=== PATIENT | male | born 1940 | race Caucasian/White ===

== ENCOUNTER 2017-03-12 13:27 | Inpatient (IN) | payer MEDICARE, OTHER, SELFPAY ==
[2017-03-12] VITALS (32 sets, daily range): BP systolic 104–146; BP diastolic 58–116; PULSE 101–150; RESP 14–25; TEMP 36.8–37; O2SAT 94–100; BMI 23.6; BMI 22.9
--- NOTE | 2017-03-12 13:31 | RAD_ITS ---
STUDY: X-RAY CHEST REASON FOR EXAM: Male, 76 years old. Cardiac dysrhythmia. TECHNIQUE: Single AP portable view of the chest. COMPARISON: None. FINDINGS: EKG electrodes are seen. Elevation of the left hemidiaphragm with atelectasis and/or infiltrate in the left lower lobe. Blunting of the left cause phrenic angle. There is moderate cardiac enlargement. Normal mediastinum and wes. Normal visualized pulmonary arteries. There is atherosclerotic calcification of the aortic arch with tortuosity. There are diffuse degenerative changes of the visualized thoracic spine. Dextroscoliosis. There is degenerative osteoarthritis of the bilateral shoulders. Large hiatal hernia. Covered stent is seen in the abdominal aorta. RAD/Chest 1 View IMPRESSION: Pleural parenchymal changes at the left lung base. Large hiatal hernia. Electronically Signed: Nikita Davis MD at 14:27 EST Tel [phone], Service support ,
--- NOTE | 2017-03-12 13:31 | EKG12_ITS ---
Test Reason : NEURO S/SX Blood Pressure : / mmHG Vent. Rate : 122 BPM Atrial Rate : 122 BPM P-R Int : 000 ms QRS Dur : 094 ms QT Int : 290 ms P-R-T Axes : 000 047 075 degrees QTc Int : 413 ms Atrial fibrillation with premature ventricular or aberrantly conducted complexes Low voltage QRS Abnormal ECG Confirmed by GIOVANNI TELLES, ISHA ([id number]), web editor TAYLOR STARKS ([id number]) on 03/13/2017 10:00:02 AM Referred By: KISHA Confirmed By:ISHA DAVILA MD
--- NOTE | 2017-03-12 13:31 | CT_ITS ---
STUDY: CT BRAIN WITHOUT CONTRAST REASON FOR EXAM: Male, 76 years old. History of CVA. RADIATION DOSAGE (If Supplied By Facility): CTDIvol = ( 44.99 ) mGy, DLP = ( 779.24 ) mGycm TECHNIQUE: Transaxial CT imaging of the brain was performed without administration of intravenous contrast material. Individualized dose optimization techniques were used for this CT. COMPARISON: None. FINDINGS: Normal soft tissue structures. Normal calvarium. There is mild cerebral atrophy with widening of the extra-axial spaces and ventricular dilatation. There is subtle effacing of the left posterior parietal sulci suggestive of early edema in the posterior aspect of the left parietal lobe. Normal basal ganglia and thalami. Normal brainstem. Normal cerebellum. There is no intracranial hemorrhage. There are no findings of an acute ischemic infarction. Atherosclerotic calcification of the vertebral arteries and cavernous portions of the internal carotid arteries bilaterally. Mucosal thickening of the maxillary sinuses bilaterally slightly worse on the left side. CT/Brain/Head without Contrast IMPRESSION: Chronic involutional changes of the brain. Subtle effacement of the sulcal markings in the left posterior parietal lobe suggestive of early ischemic insult. Mucosal thickening of the maxillary sinuses bilaterally. N.B. : The above information has been verbally conveyed by Nikita Davis MD to Cruz Sy, Referring Physician, on 03/12/2017 13:52:07 (ET). Electronically Signed: Nikita Davis MD at 13:53 EST Tel [phone], Service support , N.B. : The above information has been verbally conveyed by Nikita Davis MD to Cruz Sy, Referring Physician, on 03/12/2017 13:52:07 (ET).
[2017-03-12] MEDS: Metoprolol Tartrate 5 MG/5 ML Vial IV ×2 (13:39→21:11)
[2017-03-12 13:48] LABS: Absolute Lymphocyte Count 1.25 X10^3/ul (0.83-4.51); Basophil# 0.01 X10^3/uL; Basophil% 0.1 % (0-1); Eosinophil# 0.04 X10^3/uL; Eosinophils% 0.3 % (0-5); Hematocrit 38.6 % (40-54); Hemoglobin 12.5 g/dl (13.0-16.5); Lymphocyte # 1.25 X10^3/ul (4.0); Lymphocyte % 10.8 % (19-41); Mean Corp Hgb Conc 32.4 g/gl (32-36); Mean Corpuscular Hgb 27.9 pg (27.0-32.0); Mean Corpuscular Volume 86.2 fL (80-94); Mean Platelet Vol. 9.2 fl (6.2-12.0); Monocyte# 1.28 X10^3/uL; Neutrophil # 8.98 X10^3/uL (2.7-7.7); Neutrophil % 77.5 % (47-70); Platelet Count 355 K/mm3 (150-450); RBC Distribution Width CV 16.5 % (11.6-14.6); RBC Distribution Width SD 52.1 fl (35.1-43.9); Red Blood Count 4.48 M/mm3 (4.6-6.2); White Blood Count 11.6 K/mm3 (4.4-11.0)
[2017-03-12 13:49] LABS: POSITIVE COUNT NO; POSITIVE DIFFERENTIAL NO; POSITIVE MORPHOLOGY NO
[2017-03-12 13:54] LABS: Prothrombin Time (Protime)PT. 13.2 SECONDS (11.7-14.9)
--- NOTE | 2017-03-12 13:55 | ED.RN ---
this rn asked dr mathias about tpa, dr mathias states that we had to wait for neuro to call back to see if pt met tpa requirements d/t pt being in a-fib rvr
[2017-03-12 14:00] LABS: Partial Thromboplast Time 34.2 Seconds (24.1-36.2)
[2017-03-12 14:02] LABS: Anion Gap 10 (5-15); BUN 19 mg/dL (7-18); BUN/Creat Ratio 16.1 RATIO (10-20); Calcium,Total 8.7 mg/dL (8.5-10.1); Chloride 105 mmol/L (98-107); Creatinine, Serum 1.18 mg/dL (0.70-1.30); EST Glomerular Filtration Rate 64 mL/min (>60); Est Glom Filt Rate - Afr Amer 77 mL/min (>60); Estimated Creatinine Clearance 52.33 ml/min; Glucose 128 mg/dL (74-106); Potassium 3.5 mmol/L (3.5-5.1); Sodium Level 139 mmol/L (136-145)
--- NOTE | 2017-03-12 14:07 | CT_ITS ---
STUDY: CTA NECK WITH CONTRAST REASON FOR EXAM: Male, 76 years old. Stroke, abnormal CT head without contrast RADIATION DOSAGE (If Supplied By Facility): CTDIvol = ( ) mGy, DLP = ( ) mGycm TECHNIQUE: CT angiography with multi-detector data acquisition was performed from the aortic arch to the skull base following intravenous administration of 75 ml of Isovue 370 contrast. MIP images were reconstructed from the axial data set. Post-processing of the angiographic images was performed, with multiplanar reformation and 3D reconstruction. Individualized dose optimization techniques were used for this CT. COMPARISON: None. FINDINGS: AORTIC ARCH: There is atherosclerotic calcific plaque formation of the aortic arch and great vessels arising from the aortic arch, without a hemodynamically significant stenosis. There is a normal origin of the brachiocephalic, left common carotid, and left subclavian arteries. RIGHT CAROTID ARTERIES: Normal right common carotid artery (CCA). There is mild atherosclerotic plaque formation with minimal narrowing of the right carotid bulb. Normal origin of the right internal carotid (ICA) artery without a hemodynamically significant stenosis. Normal visualized cervical portion of the right internal carotid artery. Tortuosity of vessel is noted with hairpin turn at the mid cervical level. There is mild atherosclerotic plaque formation of the origin of the right external carotid artery with less than 50% cross sectional diameter stenosis. LEFT CAROTID ARTERIES: Normal left common carotid artery (CCA). There is mild atherosclerotic plaque formation with minimal narrowing of the left carotid bulb. There is mild atherosclerotic plaque formation of the origin of the left internal carotid artery with less than 50% cross sectional diameter stenosis. Normal visualized cervical portion of the left internal carotid artery. There is tortuosity of the vessel with a full 360 degree loop. Normal origin of the left external carotid artery (ECA). VERTEBRAL ARTERIES: Normal bilateral vertebral arteries. Diffuse degenerative spondylosis of the spine is noted. The lung apices are clear. CT/CTA Neck W/WO Contrast IMPRESSION: Atherosclerosis. There is tortuosity of the internal carotid arteries with less than 50% stenosis by NASCET criteria. See above for details. Electronically Signed: Shelley Rollins MD at 16:53 EST Tel , Service support ,
--- NOTE | 2017-03-12 14:07 | CT_ITS ---
STUDY: CTA OF THE BRAIN REASON FOR EXAM: Male, 76 years old. STROKE , history of CVA. Abnormal CT with effacement of sulcal markings in the left posterior parietal lobe suggestive of early ischemic insult on CT exam today RADIATION DOSAGE (If Supplied By Facility): CTDIvol = ( 18.65 ) mGy, DLP = ( 652.75 ) mGycm TECHNIQUE: CT angiography was performed with a multi-detector CT scanner. Data acquisition was obtained from the skull base through the vertex following intravenous administration of 75 ml of Isovue-370. MIP images were reconstructed from the axial data set. Post-processing of the angiographic images was performed, with multiplanar reformation and 3D reconstruction. Individualized dose optimization techniques were used for this CT. COMPARISON: CT brain same date FINDINGS: Normal bilateral petrous carotid arteries. There is calcified plaque formation of the right cavernous carotid artery, with a mild stenosis (less than 50%). There is calcified plaque formation of the left cavernous carotid artery, with a mild stenosis (less than 50%). Normal right A1 segments of the anterior cerebral artery. Normal left A1 segments of the anterior cerebral artery. Normal intact anterior communicating artery (ACOM). Normal bilateral A2 segments of the anterior cerebral arteries. Normal right M1 and M2 segments of the middle cerebral arteries, with a normal M1 bifurcation. Normal left M1 and M2 segments of the middle cerebral arteries, with a normal M1 bifurcation. Normal right posterior communicating artery (PCOM). Normal left posterior communicating artery (PCOM). There is a dominant left vertebral artery and smaller right vertebral artery. The basilar artery becomes atretic distally with posterior cerebral artery circulation mostly supplied through posterior communicating arteries bilaterally. The visualized bilateral superior cerebellar (SCA) arteries are normal. Normal bilateral P1, P2 and visualized P3 segments of the posterior cerebral arteries. There is no demonstrated aneurysm of the [place]. There is no demonstrated abnormality of the visualized brain. CT/CTA Head W/WO Contrast IMPRESSION: Vascular variation as outlined. No evidence of occlusion or aneurysm. No focal area of significant stenosis. Electronically Signed: Shelley Rollins MD at 16:44 EST Tel , Service support ,
[2017-03-12] MEDS: Labetalol 100 MG/20 ML Vial 10 MG IV (14:58)
--- NOTE | 2017-03-12 15:02 | CHAPLAIN ---
Type of Pastoral Visit ___ Initial Visit ___ Follow-up Visit ___ On-call Visit ___ General Patient Visit ___ Spiritual Assessment ___ Family Conference ___ Bereavement ___ Rapid Response ___ Code Blue _x - stroke team - Other (describe below) Pastoral Care Referral From ___ Patient ___ Family ___ Nurse ___ Physician ___ [employer] ___ [employer] _x__ Other (describe below) Sacrament/Intervention _x__ Active listening ___ Anointing ___ Tenriism ___ Bereavement ___ Communion ___ Kerline exploration ___ ___ Life review ___ Prayer ___ Reconciliation ___ Sacrament of Sick _x__ Supportive presence ___ Wedding ___ Other (describe below) Pastoral Comments
[2017-03-12 15:06] LABS: Bedside Glucose 113 mg/dL (70-110)
--- NOTE | 2017-03-12 15:59 | ED.RN ---
1540 UNABLE TO COMPLETE NIH AT THIS TIME. PT IN CTA SCAN
--- NOTE | 2017-03-12 16:14 | ED.VISSUMM ---
- ER Visit Summary Date of Service: 03/12/17 Chief Complaint: Acute stroke onset 1230 History of Present Illness: The patient is a 76 M 5 by ambulance agitated, confused with facial droop, expressive aphasia and weakness left side. Family did not accompany patient to the ER. He is unable to give a history. Based on prior records he has history of type 2 diabetes, hypertension, hypothyroidism and chronic A. fib. Once arrived she informed that 6 years ago he had a bleed that may have been a GI bleed versus postop bleed after his abdominal here He was a repair. Physical Examination: Patient's blood pressure is 120/89 heart rate 153 with respiratory 23. He is agitated to the best of my ability and the neurology nurses ability his NIH is 16. He will not look to the right. He does not have forced deviation to the left. His speech is slurred. He has an apparent receptive aphasia and possible expressive aphasia. His left upper extremity is weak and the left lower extremity is weak. His sensation is altered on the left. He does have a facial droop noted as well. Unable to test for cerebellar testing. Unable to determine if he has a visual field cut. Test Results: EKG A. fib RVR with a rate of 122 and premature ventricular beat noted versus a variant beat. CT of the head without contrast reveals a left posterior parietal edema consistent with acute stroke. CTA of the head and neck was obtained after discussion with neurologist. Patient was given TPA based on implied consent since he presented to the emergency room since there is no family here in time is of the essence. H&H 12.5 and 35.3. Glucose is 128. Coags are normal. Troponin was normal. Emergency Department Course and Treatment: Initially received 5 mg metoprolol IV push for rate control. Since his pressure was elevated after TPA was started he was given 10 mg of labetalol for rate control and blood pressure control. Treatment Plan: TPA after discussion with the neurologist and admission to ICU Disposition: Admission to ICU in critical condition Patient was reassessed at 1615. He is now able to move and use his left upper and lower extremity. His speech as an improved. He is still disoriented. He is now able to understand what he is told and obeys simple commands. Impression: 1. Acute posterior left parietal stroke 2. Atrial fibrillation with RVR 3. History of hypertension 4. History of type 2 diabetes 5. History of hypothyroidism This note was generated with [employer] dictation software. It may contain incorrect words, spelling, and punctuation that were not noted in review of the chart prior to signing ED Disposition - Plan for ED Patient: Chief Complaint: Neuro S/Sx Referrals: Dank Solares MD [Primary Care Provider] -
[2017-03-12] MEDS: LORazepam 2 MG/ML Syringe 0.5 MG IV (17:25)
[2017-03-12] MEDS: 0.9% Normal Saline 1,000 ML 100 ML IV (19:58)
--- NOTE | 2017-03-12 20:36 | HP.PCM_ITS ---
Problem List (1) Left arm weakness Status: Acute (2) Expressive aphasia Status: Acute History of Present Illness Date of Admission: 03/12/17 Chief Complaint: Expressive aphasia, upper extremity weakness The patient is a 76 year old M who was brought into the emergency room at [facility] by squad after experiencing left upper extremity weakness and expressive aphasia which started approximately 1 PM today. Patient was also combative at times and confused, history was obtained from the patient's family who were present during my examination. Patient's family stated that patient was not able to form sentences and communicate with them. Workup in the emergency room included a CT of the brain which showed changes in the left posterior parietal area of the brain indicating a possible stroke, CTA of the head and neck were performed and showed no evidence of clots. Patient was noted to be in atrial fibrillation which is a chronic rhythm for the patient. Neurology was contacted and advised use of TPA, patient received TPA in the ER. Patient's stroke score initially was 16. Labs were obtained which showed white blood cell count of 11.6, BUN was 19, glucose was 128. On examination, patient was not able to give a review of systems due to his severe expressive aphasia, patient appeared restless at times. Patient will be admitted to ICU, he will be seen by neurology, CT scan will be repeated in 24 hours, patient will be n.p.o. until evaluated by speech therapy. IV hypertensive medications will have to be administered. Patient's stroke score at the time of discharge from the emergency room according to the emergency room physician was 4. Past Medical History Allergies Unable to Assess Allergy (Verified 03/12/17 14:04) Home Medications: Ambulatory Orders Medication Instructions Recorded Amlodipine [Norvasc] 10 mg PO DAILY 03/12/17 Clonidine HCl 0.3 mg PO DAILY 03/12/17 Levothyroxine [Synthroid] 112 mcg PO DAILY 03/12/17 Meloxicam [Meloxicam] 7.5 mg PO DAILY 03/12/17 Metformin HCl [Metformin HCl ER] 1,000 mg PO DAILY 03/12/17 Metoprolol Tartrate [Lopressor 50 mg PO DAILY 03/12/17 (Beta Rubia)] Rosuvastatin Calcium [Rosuvastatin 20 mg PO QHS 03/12/17 Calcium] Surgical History: total knee arthroplasty - Bilateral, - - Abdominal aortic aneurysm repair, bilateral knee replacements Psychiatric History: No pertinent psych hx Lives: Spouse/ Significant Other Smoking Status: Never smoker Tobacco Use: Non-smoker Alcohol: None Drugs: None - *Family History Maternal History Items: Stroke Paternal History Items: Stroke Review of Systems Comment: Review of systems was unobtainable due to the patient's expressive and receptive aphasia, information was obtained from the patient's family members who are present VTE Information - Inpt Only VTE Present on Admission: No VTE Mechan Device Prophylaxis: None VTE Pharm Prophylaxis ordered?: No Reason prophylaxis not ordered:: Medical Contraindication - Patient received TPA Patient Problems: Active and Suspected Problems Left arm weakness (Acute) Expressive aphasia (Acute) - Physical Exam General: Alert, No apparent distress, Well developed, Well nourished HEENT: Atraumatic, PERRLA, EOMI Oral: Moist Mucosa Neck: Supple, No JVD, Negative Carotid Bruits, No Nuchal Rigidity, Trachea Midline, Thyroid Normal Size and Texture Lungs: Clear to auscultation, Normal air movement, No rhonchi, No wheeze, No rales Cardiovascular: No murmurs, PMI Normal, Irregular Rate, No rub noted, No Gallop Abdomen: Bowel Sounds Present, Soft, Non Tender, Non-Distended, No hernias noted Extremities: No clubbing, No cyanosis, No edema, Capillary Refill Less than 3 Seconds Skin: No rashes, No breakdown Musculoskeletal: No Tenderness to Palpation of Joints or Extremities Neurological: Cranial nerves II-XII grossly intact, Neuro grossly intact, Sensory exam intact to light touch and pain, Coordination normal Psych/Mental Status: Restless, - - Patient was alert, he appeared restless, he did follow commands Vital Signs Temp Pulse Resp BP Pulse Ox 98.6 F 104 H 20 H 144/97 H 97 03/12/17 13:31 03/12/17 19:30 03/12/17 19:30 03/12/17 19:30 03/12/17 19:30 Oxygen Delivery Method Room Air Weight: 68.4 kg Body Mass Index (BMI) 22.9 Laboratory Tests Past 24 Hrs 03/12/17 18:00 MRSA (PCR) Pending Assessment/Plan Active and Suspected Problems Left arm weakness (Acute) Expressive aphasia (Acute) #1 acute ischemic stroke-it is possible this could be an embolic stroke-patient will be admitted to ICU, he was given TPA in the emergency room, he will be seen in consultation by neurology, he will be monitored in ICU. Patient will have a repeat CT of the brain done tomorrow morning, echocardiogram will be ordered, I will place the patient on IV metoprolol for control of his A. fib and his blood pressure, he will also be placed on a Catapres patch as he takes oral Catapres. #2 chronic atrial fibrillation-patient's states that he was not kept on anticoagulants due to concern about bleeding that he had after he had his abdominal aortic aneurysm repaired, he is only been taking aspirin daily. #3 hypertension #4 type 2 diabetes-patient will be given sliding scale insulin per fingerstick blood sugars #5 osteoarthritis Code Visit Inpatient E&M: 45406 Init Hosp L3
[2017-03-12 23:46] LABS: Bedside Glucose 109 mg/dL (70-110)
[2017-03-13] VITALS (31 sets, daily range): BP systolic 100–165; BP diastolic 59–112; PULSE 85–164; RESP 16–26; TEMP 36.8–40.1; O2SAT 94–100; BMI 22.9
[2017-03-13 01:41] LABS: M R Staph aureus DNA By PCR Negative (Negative); Probe Check PASS; Specimen Processing Control PASS
[2017-03-13] MEDS: CHLORHEXIDINE GLUC 2% CLOTH 1 EACH TOWELETTE TOPICAL (04:04)
--- NOTE | 2017-03-13 05:55 | ECHOD_ITS ---
Reason For Study: TIA/CVA Procedure This was a 2D Doppler, Color Flow transthoracic echocardiogram. The exam was of fair technical quality due to diminished acoustic windows. The study was technically difficult. Exam performed portable in ICU/CCU. Left Ventricle Mildly dilated left ventricle. Moderate global left ventricular systolic dysfunction. The estimated ejection fraction is 35 %. Right Ventricle Normal RV size. Normal systolic function. Atria The left atrium is severely enlarged. The right atrium is moderately enlarged. No doppler evidence for ASD. Mitral Valve There is no mitral annular calcification. Mild diffuse mitral valve thickening. Mild mitral valve prolapse. Mild-Moderate (1-2+) anteriorly directed mitral valve insufficiency. Tricuspid Valve Normal tricuspid valve. Moderate (2+) tricuspid valve insufficiency. Right ventricular systolic pressure estimated to be 37 mmHg. Aortic Valve Trisinus/trileaflet aortic valve. Mild diffuse aortic valve thickening. Moderate diffuse aortic valve calcification. Mild to moderate aortic stenosis. Pulmonic Valve The pulmonic valve is not well visualized. Great Vessels Normal sized aortic root. Pericardium/Pleural No pericardial effusion. MMode/2D Measurements & Calculations LVIDd: 5.5 cm IVSd: 0.84 cm LVOT diam: 1.9 cm LVIDs: 4.2 cm LVPWd: 0.98 cm LVOT area: 3.0 cm2 RVDd: 3.4 cm FS: 22.9 % Ao root diam: 3.4 cm LAV(MOD-bp): 126.0 ml Aortic Valve Planimetry: 1.5 cm2 LA dimension: 6.7 cm LAV(MOD-bp) Indexed: 70.3 ml/m2 LAV(MOD-sp2): 95.2 ml LAV(MOD-sp4): 158.3 ml LA A4 area: 40.6 cm2 RA A4 area: 26.3 cm2 Doppler Measurements & Calculations MV E max lillie: 117.0 cm/sec Ao V2 max: 196.3 cm/sec LV V1 max: 97.1 cm/sec Ao max P.3 mmHg LV V1 max P.9 mmHg Ao V2 mean: 129.1 cm/sec LV V1 mean P.0 mmHg Ao mean P.8 mmHg LV V1 mean: 65.1 cm/sec Ao V2 VTI: 27.2 cm LV V1 VTI: 12.3 cm PETER(I,D): 1.3 cm2 PETER(V,D): 1.5 cm2 SV(LVOT): 36.6 ml PA V2 max: 115.2 cm/sec TR max lillie: 289.6 cm/sec TR max P.6 mmHg Interpretation Summary The study was technically difficult. Mildly dilated left ventricle. Moderate global left ventricular systolic dysfunction. The estimated ejection fraction is 35 %. The left atrium is severely enlarged. The right atrium is moderately enlarged. Mild mitral valve prolapse. Mild diffuse mitral valve thickening. Mild-Moderate (1-2+) anteriorly directed mitral valve insufficiency. Moderate (2+) tricuspid valve insufficiency. Mild to moderate aortic stenosis. Right ventricular systolic pressure estimated to be 37 mmHg. Ordering Physician: Jaycob Husain Referring Physician: HOA CORDON Performed By: Jessica Watson, RDCS, RVT
[2017-03-13] MEDS: 0.9% Normal Saline 1,000 ML 100 ML IV ×2 (05:59→18:24)
[2017-03-13] MEDS: Metoprolol Tartrate 5 MG/5 ML Vial 2.5 MG IV ×3 (06:20→10:51)
--- NOTE | 2017-03-13 07:06 | PCM.CON.CC ---
Problem List (1) Acute thromboembolic cerebrovascular accident (CVA) Status: Acute (2) Received intravenous tissue plasminogen activator (tPA) in emergency department Status: Acute (3) Left arm weakness Status: Ruled-out (4) Expressive aphasia Status: Acute (5) Hypertension Status: Chronic Qualifiers: Hypertension type: essential hypertension Qualified Code(s): I10 - Essential (primary) hypertension (6) Diabetes mellitus type 2 in nonobese Status: Chronic (7) Hypothyroidism Status: Chronic Qualifiers: Hypothyroidism type: unspecified Qualified Code(s): E03.9 - Hypothyroidism, unspecified Reason for Consult Date of Consultation: 03/13/17 Reason for Consultation: Acute CVA History of Present Illness: The patient is a 76 year old M, with a past medical history significant for diabetes mellitus, hypercholesterolemia, hypothyroidism and hypertension, who presented to [facility] on 03/12/2017 secondary to expressive aphasia and upper extremity weakness that started at approximately 1 PM. Patient reportedly was combative infused at times and history was obtained from family members. Upon evaluation in the emergency room, CTA showed no evidence of clots, but some edema. Patient was noted to be in atrial fibrillation and had an NIH of 16. Patient was administered TPA at approximately 2:30 PM and transferred to the intensive care unit for further monitoring. Overnight, patient had his clonidine held secondary to blood pressure concerns. Patient also had his Lopressor held intermittently. Patient has had elevated heart rates overnight with ventricular rates between 115 and 140. Blood pressures have remained adequate. No bleeding complications have been reported. Patient does have some issue with urinary retention. Patient has had significant improvement in upper extremity, but still has significant aphasia. Patient does follow simple commands at this time. Past Medical History Past Medical History (Chronic Problems): Chronic Problems Hypertension (Chronic) Diabetes mellitus type 2 in nonobese (Chronic) Hypothyroidism (Chronic) Allergies Unable to Assess Allergy (Verified 03/12/17 14:04) Home Medications: Ambulatory Orders Medication Instructions Recorded Amlodipine [Norvasc] 10 mg PO DAILY 03/12/17 Clonidine HCl 0.3 mg PO DAILY 03/12/17 Levothyroxine [Synthroid] 112 mcg PO DAILY 03/12/17 Meloxicam [Meloxicam] 7.5 mg PO DAILY 03/12/17 Metformin HCl [Metformin HCl ER] 1,000 mg PO DAILY 03/12/17 Metoprolol Tartrate [Lopressor 50 mg PO DAILY 03/12/17 (Beta Rubia)] Rosuvastatin Calcium [Rosuvastatin 20 mg PO QHS 03/12/17 Calcium] Surgical History: total knee arthroplasty - Bilateral, - - Abdominal aortic aneurysm repair, bilateral knee replacements Psychiatric History: No pertinent psych hx Lives: Spouse/ Significant Other Smoking Status: Never smoker Tobacco Use: Non-smoker Alcohol: None Drugs: None - *Family History Maternal History Items: Stroke Paternal History Items: Stroke Review of Systems Unable to obtain accurate/complete ROS d/t: Expressive aphasia Patient Problems: Active and Suspected Problems Expressive aphasia (Acute) Acute thromboembolic cerebrovascular accident (CVA) (Acute) Received intravenous tissue plasminogen activator (tPA) in emergency department (Acute) Objective: All imaging was personally reviewed. Agree with formal interpretation - Physical Exam General: Alert, Cooperative, No apparent distress, - - Moving all extremities. Follows simple commands. Frustrated with aphasia. HEENT: Atraumatic, PERRLA, EOMI, Normocephalic, - - No facial droop is appreciated Oral: Moist Mucosa, No Gingival or Mucosal Lesions/ Ulcerations Neck: Supple, No JVD, No Nodes, Trachea Midline Lungs: Clear to auscultation, Normal air movement, No rhonchi, No wheeze, No rales Cardiovascular: Normal S1, Normal S2, No murmurs, Irregular Rate, No rub noted, No Gallop, Tachycardic Abdomen: Bowel Sounds Present, Soft, Non Tender, Non-Distended Extremities: No clubbing, No cyanosis, No edema, Capillary Refill Less than 3 Seconds Skin: No rashes, No breakdown Musculoskeletal: No Tenderness to Palpation of Joints or Extremities, No Muscle Wasting Lymphatic: No Cervical, Supraclavicular, or Inguinal Adenopathy Neurological: Cranial nerves II-XII grossly intact, Neuro grossly intact, Motor Exam 5/5 strength throughout, Sensory exam intact to light touch and pain Psych/Mental Status: Agitated, Restless Vital Signs Temp Pulse Resp BP Pulse Ox 36.9 C 118 H 17 143/109 H 99 03/13/17 04:00 03/13/17 06:41 03/13/17 06:00 03/13/17 06:41 03/13/17 06:00 Oxygen Delivery Method Room Air Weight: 66.7 kg Body Mass Index (BMI) 22.9 Intake and Output for Last 24 Hours 03/11/17 03/12/17 03/13/17 23:59 23:59 23:59 Intake Total 1000 / 1000 Output Total 2250 / 2250 Balance -1250 / -1250 Laboratory Tests 03/12/17 03/12/17 03/12/17 13:30 13:30 13:30 WBC 11.6 H RBC 4.48 L Hgb 12.5 L Hct 38.6 L MCV 86.2 MCH 27.9 MCHC 32.4 RDW 16.5 H RDW Differential 52.1 H Plt Count 355 MPV 9.2 Immature Gran % (Auto) 0.300 Neut % (Auto) 77.5 H Lymph % (Auto) 10.8 L Graves % (Auto) 11.0 H Eos % (Auto) 0.3 Baso % (Auto) 0.1 Absolute Neuts (auto) 9.0 H Absolute Lymphs (auto) 1.25 Total Counted Not Reportable PT 13.2 INR 1.0 APTT 34.2 Sodium 139 Potassium 3.5 Chloride 105 Carbon Dioxide 24.0 Anion Gap 10 BUN 19 H Creatinine 1.18 Estim Creat Clear Calc 52.33 Est GFR (MDRD) Af Amer 77 Est GFR (MDRD) Non-Af 64 BUN/Creatinine Ratio 16.1 Glucose 128 H Calcium 8.7 Troponin I < 0.02 MRSA (PCR) POC Glucose 03/12/17 03/12/17 03/13/17 13:30 21:57 00:15 WBC RBC Hgb Hct MCV MCH MCHC RDW RDW Differential Plt Count MPV Immature Gran % (Auto) Neut % (Auto) Lymph % (Auto) Graves % (Auto) Eos % (Auto) Baso % (Auto) Absolute Neuts (auto) Absolute Lymphs (auto) Total Counted PT INR APTT Sodium Potassium Chloride Carbon Dioxide Anion Gap BUN Creatinine Estim Creat Clear Calc Est GFR (MDRD) Af Amer Est GFR (MDRD) Non-Af BUN/Creatinine Ratio Glucose Calcium Troponin I MRSA (PCR) Negative POC Glucose 113 H 109 Clinical Impression(s) from Imaging Studies Brain CT 03/12/17 13:31 IMPRESSION: Chronic involutional changes of the brain. Subtle effacement of the sulcal markings in the left posterior parietal lobe suggestive of early ischemic insult. Mucosal thickening of the maxillary sinuses bilaterally. N.B. : The above information has been verbally conveyed by Nikita Davis MD to Cruz Sy, Referring Physician, on 03/12/2017 13:52:07 (ET). Electronically Signed: Nikita Davis MD at 13:53 EST Tel [phone], Service support , N.B. : The above information has been verbally conveyed by Nikita Davis MD to Cruz Sy, Referring Physician, on 03/12/2017 13:52:07 (ET). Chest X-Ray 03/12/17 13:31 IMPRESSION: Pleural parenchymal changes at the left lung base. Large hiatal hernia. Electronically Signed: Nikita Davis MD at 14:27 EST Tel [phone], Service support , Head CTA 03/12/17 14:07 IMPRESSION: Vascular variation as outlined. No evidence of occlusion or aneurysm. No focal area of significant stenosis. Electronically Signed: Shelley Rollins MD at 16:44 EST Tel , Service support , Neck CTA 03/12/17 14:07 IMPRESSION: Atherosclerosis. There is tortuosity of the internal carotid arteries with less than 50% stenosis by NASCET criteria. See above for details. Electronically Signed: Shelley Rollins MD at 16:53 EST Tel , Service support , Assessment/Plan Active and Suspected Problems Expressive aphasia (Acute) Acute thromboembolic cerebrovascular accident (CVA) (Acute) Received intravenous tissue plasminogen activator (tPA) in emergency department (Acute) RECOMMENDATIONS: 1. Continue with post TPA protocol 2. Schedule Lopressor every 6 hours for rate control 3. Defer to neurology on initiation of anticoagulation 4. Post stroke workup as ordered 5. Initiate p.o. diet if passes speech therapy evaluation IMPRESSIONS: 1. Aphasia secondary to acute left-sided CVA status post TPA She was significant response to TPA therapy. Patient is still having significant difficulty with aphasia on physical exam, but left extremity is much improved. Patient does have significant tachycardia, but blood pressure is acceptable at this time. No signs or symptoms of bleeding at this time. Patient will require a CT scan of the head at approximately 230 per the protocol. Neurology is following. High clinical suspicion for clot secondary to atrial fibrillation. 2. Type 2 diabetes mellitus/hypertension/hyperthyroidism/chronic A. fib Complicates care, management, recovery and prognosis. Patient currently n.p.o. Allow for permissive hypertension secondary to recent CVA. Will add Lopressor for rate control. Blood sugars are well-controlled at this time. Would stick with sliding scale insulin for glucose control as Metformin can lead to increased risk for contrast-induced nephropathy. Code Visit Inpatient E&M: 13164 Init Hosp L3
--- NOTE | 2017-03-13 07:21 | CON.PCM_ITS ---
Problem List (1) Acute thromboembolic cerebrovascular accident (CVA) Status: Acute (2) Received intravenous tissue plasminogen activator (tPA) in emergency department Status: Acute (3) Left arm weakness Status: Ruled-out (4) Expressive aphasia Status: Acute (5) Hypertension Status: Chronic Qualifiers: Hypertension type: essential hypertension Qualified Code(s): I10 - Essential (primary) hypertension (6) Diabetes mellitus type 2 in nonobese Status: Chronic (7) Hypothyroidism Status: Chronic Qualifiers: Hypothyroidism type: unspecified Qualified Code(s): E03.9 - Hypothyroidism , unspecified Reason for Consult Date of Consultation: 03/13/17 Reason for Consultation: Acute CVA History of Present Illness: The patient is a 76 year old M, with a past medical history significant for diabetes mellitus, hypercholesterolemia, hypothyroidism and hypertension, who presented to [facility] on 03/12/2017 secondary to expressive aphasia and upper extremity weakness that started at approximately 1 PM. Patient reportedly was combative infused at times and history was obtained from family members. Upon evaluation in the emergency room, CTA showed no evidence of clots, but some edema. Patient was noted to be in atrial fibrillation and had an NIH of 16. Patient was administered TPA at approximately 2:30 PM and transferred to the intensive care unit for further monitoring. Overnight, patient had his clonidine held secondary to blood pressure concerns. Patient also had his Lopressor held intermittently. Patient has had elevated heart rates overnight with ventricular rates between 115 and 140. Blood pressures have remained adequate. No bleeding complications have been reported. Patient does have some issue with urinary retention. Patient has had significant improvement in upper extremity, but still has significant aphasia. Patient does follow simple commands at this time. Past Medical History Past Medical History (Chronic Problems): Chronic Problems Hypertension (Chronic) Diabetes mellitus type 2 in nonobese (Chronic) Hypothyroidism (Chronic) Allergies Unable to Assess Allergy (Verified 03/12/17 14:04) Home Medications: Ambulatory Orders Medication Instructions Recorded Amlodipine [Norvasc] 10 mg PO DAILY 03/12/17 Clonidine HCl 0.3 mg PO DAILY 03/12/17 Levothyroxine [Synthroid] 112 mcg PO DAILY 03/12/17 Meloxicam [Meloxicam] 7.5 mg PO DAILY 03/12/17 Metformin HCl [Metformin HCl ER] 1,000 mg PO DAILY 03/12/17 Metoprolol Tartrate [Lopressor 50 mg PO DAILY 03/12/17 (Beta Rubia)] Rosuvastatin Calcium [Rosuvastatin 20 mg PO QHS 03/12/17 Calcium] Surgical History: total knee arthroplasty - Bilateral, - - Abdominal aortic aneurysm repair, bilateral knee replacements Psychiatric History: No pertinent psych hx Lives: Spouse/ Significant Other Smoking Status: Never smoker Tobacco Use: Non-smoker Alcohol: None Drugs: None - *Family History Maternal History Items: Stroke Paternal History Items: Stroke Review of Systems Unable to obtain accurate/complete ROS d/t: Expressive aphasia Patient Problems: Active and Suspected Problems Expressive aphasia (Acute) Acute thromboembolic cerebrovascular accident (CVA) (Acute) Received intravenous tissue plasminogen activator (tPA) in emergency department (Acute) Objective: All imaging was personally reviewed. Agree with formal interpretation - Physical Exam General: Alert, Cooperative, No apparent distress, - - Moving all extremities. Follows simple commands. Frustrated with aphasia. HEENT: Atraumatic, PERRLA, EOMI, Normocephalic, - - No facial droop is appreciated Oral: Moist Mucosa, No Gingival or Mucosal Lesions/ Ulcerations Neck: Supple, No JVD, No Nodes, Trachea Midline Lungs: Clear to auscultation, Normal air movement, No rhonchi, No wheeze, No rales Cardiovascular: Normal S1, Normal S2, No murmurs, Irregular Rate, No rub noted, No Gallop, Tachycardic Abdomen: Bowel Sounds Present, Soft, Non Tender, Non-Distended Extremities: No clubbing, No cyanosis, No edema, Capillary Refill Less than 3 Seconds Skin: No rashes, No breakdown Musculoskeletal: No Tenderness to Palpation of Joints or Extremities, No Muscle Wasting Lymphatic: No Cervical, Supraclavicular, or Inguinal Adenopathy Neurological: Cranial nerves II-XII grossly intact, Neuro grossly intact, Motor Exam 5/5 strength throughout, Sensory exam intact to light touch and pain Psych/Mental Status: Agitated, Restless Vital Signs Temp Pulse Resp BP Pulse Ox 36.9 C 118 H 17 143/109 H 99 03/13/17 04:00 03/13/17 06:41 03/13/17 06:00 03/13/17 06:41 03/13/17 06:00 Oxygen Delivery Method Room Air Weight: 66.7 kg Body Mass Index (BMI) 22.9 Intake and Output for Last 24 Hours 03/11/17 03/12/17 03/13/17 23:59 23:59 23:59 Intake Total 1000 / 1000 Output Total 2250 / 2250 Balance -1250 / -1250 Laboratory Tests 03/12/17 03/12/17 03/12/17 13:30 13:30 13:30 WBC 11.6 H RBC 4.48 L Hgb 12.5 L Hct 38.6 L MCV 86.2 MCH 27.9 MCHC 32.4 RDW 16.5 H RDW Differential 52.1 H Plt Count 355 MPV 9.2 Immature Gran % (Auto) 0.300 Neut % (Auto) 77.5 H Lymph % (Auto) 10.8 L Pershing % (Auto) 11.0 H Eos % (Auto) 0.3 Baso % (Auto) 0.1 Absolute Neuts (auto) 9.0 H Absolute Lymphs (auto) 1.25 Total Counted Not Reportable PT 13.2 INR 1.0 APTT 34.2 Sodium 139 Potassium 3.5 Chloride 105 Carbon Dioxide 24.0 Anion Gap 10 BUN 19 H Creatinine 1.18 Estim Creat Clear Calc 52.33 Est GFR (MDRD) Af Amer 77 Est GFR (MDRD) Non-Af 64 BUN/Creatinine Ratio 16.1 Glucose 128 H Calcium 8.7 Troponin I < 0.02 MRSA (PCR) POC Glucose 03/12/17 03/12/17 03/13/17 13:30 21:57 00:15 WBC RBC Hgb Hct MCV MCH MCHC RDW RDW Differential Plt Count MPV Immature Gran % (Auto) Neut % (Auto) Lymph % (Auto) Pershing % (Auto) Eos % (Auto) Baso % (Auto) Absolute Neuts (auto) Absolute Lymphs (auto) Total Counted PT INR APTT Sodium Potassium Chloride Carbon Dioxide Anion Gap BUN Creatinine Estim Creat Clear Calc Est GFR (MDRD) Af Amer Est GFR (MDRD) Non-Af BUN/Creatinine Ratio Glucose Calcium Troponin I MRSA (PCR) Negative POC Glucose 113 H 109 Clinical Impression(s) from Imaging Studies Brain CT 03/12/17 13:31 IMPRESSION: Chronic involutional changes of the brain. Subtle effacement of the sulcal markings in the left posterior parietal lobe suggestive of early ischemic insult. Mucosal thickening of the maxillary sinuses bilaterally. N.B. : The above information has been verbally conveyed by Nikita Davis MD to Cruz Sy, Referring Physician, on 03/12/2017 13:52:07 (ET). Electronically Signed: Nikita Davis MD at 13:53 EST Tel [phone], Service support , N.B. : The above information has been verbally conveyed by Nikita Davis MD to Cruz Sy, Referring Physician, on 03/12/2017 13:52:07 (ET). Chest X-Ray 03/12/17 13:31 IMPRESSION: Pleural parenchymal changes at the left lung base. Large hiatal hernia. Electronically Signed: Nikita Davis MD at 14:27 EST Tel [phone], Service support , Head CTA 03/12/17 14:07 IMPRESSION: Vascular variation as outlined. No evidence of occlusion or aneurysm. No focal area of significant stenosis. Electronically Signed: Shelley Rollins MD at 16:44 EST Tel , Service support , Neck CTA 03/12/17 14:07 IMPRESSION: Atherosclerosis. There is tortuosity of the internal carotid arteries with less than 50% stenosis by NASCET criteria. See above for details. Electronically Signed: Shelley Rollins MD at 16:53 EST Tel , Service support , Assessment/Plan Active and Suspected Problems Expressive aphasia (Acute) Acute thromboembolic cerebrovascular accident (CVA) (Acute) Received intravenous tissue plasminogen activator (tPA) in emergency department (Acute) RECOMMENDATIONS: 1. Continue with post TPA protocol 2. Schedule Lopressor every 6 hours for rate control 3. Defer to neurology on initiation of anticoagulation 4. Post stroke workup as ordered 5. Initiate p.o. diet if passes speech therapy evaluation IMPRESSIONS: 1. Aphasia secondary to acute left-sided CVA status post TPA She was significant response to TPA therapy. Patient is still having significant difficulty with aphasia on physical exam, but left extremity is much improved. Patient does have significant tachycardia, but blood pressure is acceptable at this time. No signs or symptoms of bleeding at this time. Patient will require a CT scan of the head at approximately 230 per the protocol. Neurology is following. High clinical suspicion for clot secondary to atrial fibrillation. 2. Type 2 diabetes mellitus/hypertension/hyperthyroidism/chronic A. fib Complicates care, management, recovery and prognosis. Patient currently n.p.o. Allow for permissive hypertension secondary to recent CVA. Will add Lopressor for rate control. Blood sugars are well-controlled at this time. Would stick with sliding scale insulin for glucose control as Metformin can lead to increased risk for contrast-induced nephropathy. Code Visit Inpatient E&M: 68529 Init Hosp L3
[2017-03-13 08:00] LABS: Bedside Glucose 84 mg/dL (70-110)
--- NOTE | 2017-03-13 09:56 | PCM.PROGNOTE ---
Patient Problems: Active and Suspected Problems Expressive aphasia (Acute) Acute thromboembolic cerebrovascular accident (CVA) (Acute) Received intravenous tissue plasminogen activator (tPA) in emergency department (Acute) Subjective: Chief complaint: Follow-up after admission for acute ischemic stroke post TPA. Patient seen and examined. No acute events overnight. Still having expressive aphasia, difficulty getting words out. Left upper extremity is weaker than the right. Denied chest pain or shortness of breath. Heart rate has been in the range of around 120, other vital signs are stable. - Physical Exam General: Alert, Cooperative, No apparent distress, - - Expressive aphasia. HEENT: Atraumatic, PERRLA, EOMI Oral: Moist Mucosa, No Gingival or Mucosal Lesions/ Ulcerations Neck: Supple, No JVD, Negative Carotid Bruits, Trachea Midline, Thyroid Normal Size and Texture Lungs: Clear to auscultation, No rhonchi, No wheeze, No rales, Diminished Cardiovascular: Normal S1, Normal S2, No murmurs, PMI Normal, Irregular Rate, Tachycardic Abdomen: Bowel Sounds Present, Soft, Non Tender, Non-Distended, No Hepato-splenomegaly Extremities: No clubbing, No cyanosis, No edema Skin: No rashes, No breakdown Lymphatic: No Cervical, Supraclavicular, or Inguinal Adenopathy Neurological: Cranial nerves II-XII grossly intact, - - Minimal weakness on the left upper extremity, power is 4+ x 5. Other limbs are 5 x 5. Psych/Mental Status: Restless Vital Signs Temp Pulse Resp BP Pulse Ox 98.3 F 125 H 17 135/89 H 99 03/13/17 08:00 03/13/17 08:00 03/13/17 08:00 03/13/17 08:00 03/13/17 08:00 Oxygen Delivery Method Room Air Weight: 147 lb 0.773 oz Body Mass Index (BMI) 22.9 Intake and Output for Last 24 Hours 03/11/17 03/12/17 03/13/17 23:59 23:59 23:59 Intake Total 1000 / 1000 Output Total 2250 / 2250 Balance -1250 / -1250 Laboratory Tests Past 24 Hrs 03/13/17 00:15 MRSA (PCR) Negative POC Glucose 03/13/17 03/12/17 07:49 21:57 POC Glucose 84 109 Clinical Impression(s) from Imaging Studies Brain CT 03/12/17 13:31 IMPRESSION: Chronic involutional changes of the brain. Subtle effacement of the sulcal markings in the left posterior parietal lobe suggestive of early ischemic insult. Mucosal thickening of the maxillary sinuses bilaterally. N.B. : The above information has been verbally conveyed by Nikita Davis MD to Cruz Sy, Referring Physician, on 03/12/2017 13:52:07 (ET). Electronically Signed: Nikita Davis MD at 13:53 EST Tel [phone], Service support , N.B. : The above information has been verbally conveyed by Nikita Davis MD to Cruz Sy, Referring Physician, on 03/12/2017 13:52:07 (ET). Chest X-Ray 03/12/17 13:31 IMPRESSION: Pleural parenchymal changes at the left lung base. Large hiatal hernia. Electronically Signed: Nikita Davis MD at 14:27 EST Tel [phone], Service support , Head CTA 03/12/17 14:07 IMPRESSION: Vascular variation as outlined. No evidence of occlusion or aneurysm. No focal area of significant stenosis. Electronically Signed: Shelley Rollins MD at 16:44 EST Tel , Service support , Neck CTA 03/12/17 14:07 IMPRESSION: Atherosclerosis. There is tortuosity of the internal carotid arteries with less than 50% stenosis by NASCET criteria. See above for details. Electronically Signed: Shelley Rollins MD at 16:53 EST Tel , Service support , Assessment/Plan Active and Suspected Problems Expressive aphasia (Acute) Acute thromboembolic cerebrovascular accident (CVA) (Acute) Received intravenous tissue plasminogen activator (tPA) in emergency department (Acute) This is a 76 years old male patient admitted because of expressive aphasia and left upper extremity weakness, found to have acute ischemic stroke of the left posterior parietal area status post TPA. #1 acute probably embolic stroke: Affecting the left posterior parietal area with resultant expressive aphasia and minimal left upper extremity weakness, status post TPA. She still symptomatic with expressive aphasia, minimal weakness on the left upper extremity. Blood pressure stable at target, heart rate has been fast and in A. fib. He is on statins. CTA of the head showed no evidence of acute occlusion or aneurysm, no focal area of focal stenosis. CTA of the neck revealed less than 50% stenosis of the internal carotid arteries. The echocardiogram done, awaiting the results. Neurology consulted awaiting the recommendation. Critical care on the case. Down the road, patient probably will need to be anticoagulated. Plan to repeat CT scan brain later today. #2 A. fib with RVR: Heart rate is not well controlled, has been in 120s, blood pressure stable. He is on oral metoprolol as well as scheduled IV metoprolol for rate control. 2D echocardiogram is pending. Eventually, patient probably will need to be anticoagulated. #3 hypertension: Blood pressure stable, continue Norvasc and metoprolol as well as Catapres. #4 hypothyroidism: Continue levothyroxine. #5 type 2 diabetes mellitus: Sugar stable, continue ADA diet, Accu-Cheks, continue insulin sliding scale, keep holding metformin. #6 hyperlipidemia: Continue statins. #7 DVT prophylaxis: SCDs. This note was generated with [employer] dictation software. It may contain incorrect words, spelling, and punctuation that were not noted in checking the note before signing. Code Visit Inpatient E&M: 06466 Subs Hosp L3
--- NOTE | 2017-03-13 09:59 | PN_ITS ---
Patient Problems: Active and Suspected Problems Expressive aphasia (Acute) Acute thromboembolic cerebrovascular accident (CVA) (Acute) Received intravenous tissue plasminogen activator (tPA) in emergency department (Acute) Subjective: Chief complaint: Follow-up after admission for acute ischemic stroke post TPA. Patient seen and examined. No acute events overnight. Still having expressive aphasia, difficulty getting words out. Left upper extremity is weaker than the right. Denied chest pain or shortness of breath. Heart rate has been in the range of around 120, other vital signs are stable. - Physical Exam General: Alert, Cooperative, No apparent distress, - - Expressive aphasia. HEENT: Atraumatic, PERRLA, EOMI Oral: Moist Mucosa, No Gingival or Mucosal Lesions/ Ulcerations Neck: Supple, No JVD, Negative Carotid Bruits, Trachea Midline, Thyroid Normal Size and Texture Lungs: Clear to auscultation, No rhonchi, No wheeze, No rales, Diminished Cardiovascular: Normal S1, Normal S2, No murmurs, PMI Normal, Irregular Rate, Tachycardic Abdomen: Bowel Sounds Present, Soft, Non Tender, Non-Distended, No Hepato- splenomegaly Extremities: No clubbing, No cyanosis, No edema Skin: No rashes, No breakdown Lymphatic: No Cervical, Supraclavicular, or Inguinal Adenopathy Neurological: Cranial nerves II-XII grossly intact, - - Minimal weakness on the left upper extremity, power is 4+ x 5. Other limbs are 5 x 5. Psych/Mental Status: Restless Vital Signs Temp Pulse Resp BP Pulse Ox 98.3 F 125 H 17 135/89 H 99 03/13/17 08:00 03/13/17 08:00 03/13/17 08:00 03/13/17 08:00 03/13/17 08:00 Oxygen Delivery Method Room Air Weight: 147 lb 0.773 oz Body Mass Index (BMI) 22.9 Intake and Output for Last 24 Hours 03/11/17 03/12/17 03/13/17 23:59 23:59 23:59 Intake Total 1000 / 1000 Output Total 2250 / 2250 Balance -1250 / -1250 Laboratory Tests Past 24 Hrs 03/13/17 00:15 MRSA (PCR) Negative POC Glucose 03/13/17 03/12/17 07:49 21:57 POC Glucose 84 109 Clinical Impression(s) from Imaging Studies Brain CT 03/12/17 13:31 IMPRESSION: Chronic involutional changes of the brain. Subtle effacement of the sulcal markings in the left posterior parietal lobe suggestive of early ischemic insult. Mucosal thickening of the maxillary sinuses bilaterally. N.B. : The above information has been verbally conveyed by Nikita Davis MD to Cruz Sy, Referring Physician, on 03/12/2017 13:52:07 (ET). Electronically Signed: Nikita Davis MD at 13:53 EST Tel [phone], Service support , N.B. : The above information has been verbally conveyed by Nikita Davis MD to Cruz Sy, Referring Physician, on 03/12/2017 13:52:07 (ET). Chest X-Ray 03/12/17 13:31 IMPRESSION: Pleural parenchymal changes at the left lung base. Large hiatal hernia. Electronically Signed: Nikita Davis MD at 14:27 EST Tel [phone], Service support , Head CTA 03/12/17 14:07 IMPRESSION: Vascular variation as outlined. No evidence of occlusion or aneurysm. No focal area of significant stenosis. Electronically Signed: Shelley Rollins MD at 16:44 EST Tel , Service support , Neck CTA 03/12/17 14:07 IMPRESSION: Atherosclerosis. There is tortuosity of the internal carotid arteries with less than 50% stenosis by NASCET criteria. See above for details. Electronically Signed: Shelley Rollins MD at 16:53 EST Tel , Service support , Assessment/Plan Active and Suspected Problems Expressive aphasia (Acute) Acute thromboembolic cerebrovascular accident (CVA) (Acute) Received intravenous tissue plasminogen activator (tPA) in emergency department (Acute) This is a 76 years old male patient admitted because of expressive aphasia and left upper extremity weakness, found to have acute ischemic stroke of the left posterior parietal area status post TPA. #1 acute probably embolic stroke: Affecting the left posterior parietal area with resultant expressive aphasia and minimal left upper extremity weakness, status post TPA. She still symptomatic with expressive aphasia, minimal weakness on the left upper extremity. Blood pressure stable at target, heart rate has been fast and in A. fib. He is on statins. CTA of the head showed no evidence of acute occlusion or aneurysm, no focal area of focal stenosis. CTA of the neck revealed less than 50% stenosis of the internal carotid arteries. The echocardiogram done, awaiting the results. Neurology consulted awaiting the recommendation. Critical care on the case. Down the road, patient probably will need to be anticoagulated. Plan to repeat CT scan brain later today. #2 A. fib with RVR: Heart rate is not well controlled, has been in 120s, blood pressure stable. He is on oral metoprolol as well as scheduled IV metoprolol for rate control. 2D echocardiogram is pending. Eventually, patient probably will need to be anticoagulated. #3 hypertension: Blood pressure stable, continue Norvasc and metoprolol as well as Catapres. #4 hypothyroidism: Continue levothyroxine. #5 type 2 diabetes mellitus: Sugar stable, continue ADA diet, Accu-Cheks, continue insulin sliding scale, keep holding metformin. #6 hyperlipidemia: Continue statins. #7 DVT prophylaxis: SCDs. This note was generated with [employer] dictation software. It may contain incorrect words, spelling, and punctuation that were not noted in checking the note before signing. Code Visit Inpatient E&M: 51364 Subs Hosp L3
--- NOTE | 2017-03-13 11:12 | CASEMGMT ---
RN GARCIA Assessment complete. See link. [place] 5-6 steps into the home - rails on both sides of stairs. Patient did not use any DME prior to admission. Was a patient of [facility] 4-5 years ago and was happy with the care. Patient's states that she is agreeable with patient going to Rehab Unit, after discharge, if felt beneficial. I notified the patient of ICU rounds at 0900 each morning and encouraged her to attend, if able. CM/SW will continue to follow as needs arise.
[2017-03-13] MEDS: Metoprolol Tartrate 5 MG/5 ML Vial IV ×2 (12:16→18:23)
[2017-03-13 12:41] LABS: Bedside Glucose 120 mg/dL (70-110)
--- NOTE | 2017-03-13 13:05 | CON.PCM_ITS ---
Reason for Consult Date of Consultation: 03/13/17 Reason for Consultation: Cardioembolic stroke status post TPA History of Present Illness: The patient is a 76 year old M who presented to the hospital yesterday with what apparently began according to the records at 1 PM yesterday of a aphasia and upper extremity weakness. The documents indicate left upper extremity weakness, the patient is now aphasic and cannot tell me however based on the history and his CAT scan I suspect that this was an air and he actually had right upper extremity weakness although this may be an embolic stroke causing bilateral symptoms. In any event, he received IV TPA and is now on the intensive care unit. According to the report his NIH stroke score was 16 at the time. He currently denies pain but cannot tell me anything else. He has been stable overnight per nursing staff. 2 daughters are present but they say that they do not know much about the history. He does have a history of atrial fibrillation, it is not clear why he was never anticoagulated but apparently there is a history of GI bleeding in the past. Per H&P:The patient is a 76 year old M who was brought into the emergency room at [facility] by squad after experiencing left upper extremity weakness and expressive aphasia which started approximately 1 PM today. Patient was also combative at times and confused, history was obtained from the patient's family who were present during my examination. Patient's family stated that patient was not able to form sentences and communicate with them. Workup in the emergency room included a CT of the brain which showed changes in the left posterior parietal area of the brain indicating a possible stroke, CTA of the head and neck were performed and showed no evidence of clots. Patient was noted to be in atrial fibrillation which is a chronic rhythm for the patient. Neurology was contacted and advised use of TPA, patient received TPA in the ER. Patient's stroke score initially was 16. Labs were obtained which showed white blood cell count of 11.6, BUN was 19, glucose was 128. On examination, patient was not able to give a review of systems due to his severe expressive aphasia, patient appeared restless at times. Patient will be admitted to ICU, he will be seen by neurology, CT scan will be repeated in 24 hours, patient will be n.p.o. until evaluated by speech therapy. IV hypertensive medications will have to be administered. Patient's stroke score at the time of discharge from the emergency room according to the emergency room physician was 4. Past Medical History Past Medical History (Chronic Problems): Chronic Problems Hypertension (Chronic) Diabetes mellitus type 2 in nonobese (Chronic) Hypothyroidism (Chronic) Allergies Unable to Assess Allergy (Verified 03/12/17 14:04) Home Medications: Ambulatory Orders Medication Instructions Recorded Amlodipine [Norvasc] 10 mg PO DAILY 03/12/17 Clonidine HCl 0.3 mg PO DAILY 03/12/17 Levothyroxine [Synthroid] 112 mcg PO DAILY 03/12/17 Meloxicam [Meloxicam] 7.5 mg PO DAILY 03/12/17 Metformin HCl [Metformin HCl ER] 1,000 mg PO DAILY 03/12/17 Metoprolol Tartrate [Lopressor 50 mg PO DAILY 03/12/17 (Beta Rubia)] Rosuvastatin Calcium [Rosuvastatin 20 mg PO QHS 03/12/17 Calcium] Surgical History: total knee arthroplasty - Bilateral, - - Abdominal aortic aneurysm repair, bilateral knee replacements Psychiatric History: No pertinent psych hx Lives: Spouse/ Significant Other Smoking Status: Unknown if ever smoked Tobacco Use: Non-smoker Alcohol: None Drugs: None - *Family History Maternal History Items: Stroke Paternal History Items: Stroke Review of Systems Unable to obtain accurate/complete ROS d/t: Patient is currently a phasic Patient Problems: Active and Suspected Problems Expressive aphasia (Acute) Acute thromboembolic cerebrovascular accident (CVA) (Acute) Received intravenous tissue plasminogen activator (tPA) in emergency department (Acute) Subjective: On examination he has severe expressive greater than receptive aphasia. He is able to follow very simple commands but he cannot follow complex commands. He cannot tell me his name or his age but he does answer that he does not have pain currently. He does open and close his eyes to command and squeezes and releases to command. There is no facial droop at this point but he does have a right field cut to confrontation. He does not appear to have drift on either side at this point and sensation is intact. NIH stroke scale score at this point is 9 - Physical Exam Vital Signs Temp Pulse Resp BP Pulse Ox 37.0 C 155 H 20 H 141/109 H 97 03/13/17 12:00 03/13/17 12:16 03/13/17 12:00 03/13/17 12:00 03/13/17 12:00 Oxygen Delivery Method Room Air Weight: 66.7 kg Body Mass Index (BMI) 22.9 Intake and Output for Last 24 Hours 03/11/17 03/12/17 03/13/17 23:59 23:59 23:59 Intake Total 1600 / 1600 Output Total 3050 / 3050 Balance -1450 / -1450 Laboratory Tests Past 24 Hrs 03/13/17 00:15 MRSA (PCR) Negative POC Glucose 03/13/17 03/13/17 03/12/17 12:15 07:49 21:57 POC Glucose 120 H 84 109 Laboratory Results - last 24 hr 03/12/17 03/12/17 03/12/17 13:30 13:30 13:30 WBC 11.6 H RBC 4.48 L Hgb 12.5 L Hct 38.6 L MCV 86.2 MCH 27.9 MCHC 32.4 RDW 16.5 H RDW Differential 52.1 H Plt Count 355 MPV 9.2 Immature Gran % (Auto) 0.300 Neut % (Auto) 77.5 H Lymph % (Auto) 10.8 L Grant % (Auto) 11.0 H Eos % (Auto) 0.3 Baso % (Auto) 0.1 Absolute Neuts (auto) 9.0 H Absolute Lymphs (auto) 1.25 Total Counted Not Reportable PT 13.2 INR 1.0 APTT 34.2 Sodium 139 Potassium 3.5 Chloride 105 Carbon Dioxide 24.0 Anion Gap 10 BUN 19 H Creatinine 1.18 Estim Creat Clear Calc 52.33 Est GFR (MDRD) Af Amer 77 Est GFR (MDRD) Non-Af 64 BUN/Creatinine Ratio 16.1 Glucose 128 H Calcium 8.7 Troponin I < 0.02 MRSA (PCR) POC Glucose 03/12/17 03/12/17 03/13/17 13:30 21:57 00:15 WBC RBC Hgb Hct MCV MCH MCHC RDW RDW Differential Plt Count MPV Immature Gran % (Auto) Neut % (Auto) Lymph % (Auto) Grant % (Auto) Eos % (Auto) Baso % (Auto) Absolute Neuts (auto) Absolute Lymphs (auto) Total Counted PT INR APTT Sodium Potassium Chloride Carbon Dioxide Anion Gap BUN Creatinine Estim Creat Clear Calc Est GFR (MDRD) Af Amer Est GFR (MDRD) Non-Af BUN/Creatinine Ratio Glucose Calcium Troponin I MRSA (PCR) Negative POC Glucose 113 H 109 03/13/17 03/13/17 07:49 12:15 WBC RBC Hgb Hct MCV MCH MCHC RDW RDW Differential Plt Count MPV Immature Gran % (Auto) Neut % (Auto) Lymph % (Auto) Grant % (Auto) Eos % (Auto) Baso % (Auto) Absolute Neuts (auto) Absolute Lymphs (auto) Total Counted PT INR APTT Sodium Potassium Chloride Carbon Dioxide Anion Gap BUN Creatinine Estim Creat Clear Calc Est GFR (MDRD) Af Amer Est GFR (MDRD) Non-Af BUN/Creatinine Ratio Glucose Calcium Troponin I MRSA (PCR) POC Glucose 84 120 H I reviewed the CAT scan and CTA. There is no significant stenosis. There is subtle effacement of the sulci in the left cortex. Assessment/Plan Active and Suspected Problems Expressive aphasia (Acute) Acute thromboembolic cerebrovascular accident (CVA) (Acute) Received intravenous tissue plasminogen activator (tPA) in emergency department (Acute) Cardioembolic stroke, atrial fibrillation, not on anticoagulation in the past due to GI bleed by report. Now status post TPA. * MRI Pending * PT/OT/speech * Will likely need rehab * Will likely need anticoagulation but need to clear his GI issues. Further history will need to be obtained * BP control per protocol 60 MIN CC TIME Code Visit Inpatient E&M: [id number] [facility] L3
--- NOTE | 2017-03-13 13:26 | CASEMGMT ---
SW reviewed RN CM's note indicating patient's would be in agreement with 4th floor rehab unit if that is what would be best. PT/OT has not been able to see patient due to medication restrictions. MCKENZIE did call Rae in the rehab unit and made a referral. Elvira ROJAS MSW
--- NOTE | 2017-03-13 13:45 | MRI_ITS ---
STUDY: MRI BRAIN WITHOUT CONTRAST REASON FOR EXAM: Male, 76 years old. CVA, 24 hrs post TPA, non verbal altered mental status TECHNIQUE: Standardized multiplanar fat and water weighted pulse sequences were obtained.Sag T1 FLAIR Ax DWI Ax T2 PROPELLER Ax T2 FLAIR PROP Ax T1 FLAIR PROP Ax T2* GRE Apparent Diffusion Coefficient (mm2/s) Exponential Apparent Diffusion Coefficient COMPARISON: CT brain and CTA brain March 12, 2017 FINDINGS: There is mild cerebral atrophy with widening of the extra-axial spaces and ventricular dilatation. There are multiple white matter hyperintensities, distributed throughout the deep white matter tracts of the cerebral hemispheres, consistent with moderate chronic white matter ischemic changes. There is greater edema with more sulcal effacement and localized mass effect associated with the left temporoparietal lobe. The area of involvement is now more clearly seen within anterior posterior extent of approximately 8.3 cm, transverse extent of 3.8 cm and a cranial caudal extent of approximately 4.5 cm. There is focal dropout of signal intensity seen within consistent with hemorrhagic change. There is effacement of the subjacent left occipital horn and temporal horn focally. There is no shift of midline structures or downward herniation. More clearly evident are giant Virchow Morris spaces of the basal ganglia bilaterally as well as what appears to represent old lacunar infarction of the left thalamus. There is no extra-axial fluid accumulation. Normal flow voids within the major intracranial circulation suggesting patency by spin echo criteria. Normal sella turcica, pituitary gland, infundibular stalk, optic chiasm and hypothalamus. Normal tectal plate and pineal gland. Normal midbrain, jonathan and medulla. Normal cerebellum. Normal basal cisterns. Normal bilateral temporal bones. Normal bilateral internal auditory canals. No demonstrated orbital abnormality, within the constraints of a routine brain study. Mucoperiosteal thickening of the left maxillary antrum noted. Normal calvarium and skull base. Normal visualized soft tissue structures. Normal visualized upper cervical spine. MRI/Brain without Contrast IMPRESSION: Left temporoparietal infarct as described. It is more evident on this exam than on the prior studies. It appears on gradient imaging that there is signal dropout centrally suggesting petechial hemorrhage. N.B. : The above information has been verbally conveyed by Shelley Rollins MD to Joan Adorno, Hospital- In-Patient RN, on 03/13/2017 17:13:07 (ET). Electronically Signed: Shelley Rollins MD at 16:26 EST Tel , Service support , N.B. : The above information has been verbally conveyed by Shelley Rollins MD to Joan Adorno, Hospital- In-Patient RN, on 03/13/2017 17:13:07 (ET).
[2017-03-13] MEDS: Haloperidol Lactate 5 MG/ML Vial 3 MG IV (14:07)
[2017-03-13] MEDS: Midazolam 2 MG/2 ML Syringe 1 MG IV (15:27)
[2017-03-13] MEDS: 0.9% NaCl Peripheral Flush Adult/Peds IV (16:04)
[2017-03-13] MEDS: dilTIAZem 25 MG/5 ML Vial 20 MG IV BOLUS (16:33)
--- NOTE | 2017-03-13 19:07 | PCM.CONS.C ---
Problem List (1) Atrial fibrillation Status: Acute Qualifiers: Atrial fibrillation type: permanent Qualified Code(s): I48.2 - Chronic atrial fibrillation (2) Cardiomyopathy Status: Chronic Qualifiers: Cardiomyopathy type: unspecified Qualified Code(s): I42.9 - Cardiomyopathy, unspecified (3) Aneurysm, abdominal aortic, with rupture Status: Resolved (4) Aortic valve stenosis Status: Chronic Qualifiers: Cardiac valve disease etiology: nonrheumatic Qualified Code(s): I35.0 - Nonrheumatic aortic (valve) stenosis (5) HLD (hyperlipidemia) Status: Chronic Qualifiers: Hyperlipidemia type: unspecified Qualified Code(s): E78.5 - Hyperlipidemia, unspecified (6) Hypertension Status: Chronic Qualifiers: Hypertension type: essential hypertension Qualified Code(s): I10 - Essential (primary) hypertension (7) Diabetes mellitus type 2 in nonobese Status: Chronic (8) Hypothyroidism Status: Chronic Qualifiers: Hypothyroidism type: unspecified Qualified Code(s): E03.9 - Hypothyroidism, unspecified (9) Acute thromboembolic cerebrovascular accident (CVA) Status: Acute Reason for Consult Date of Consultation: 03/13/17 History of Present Illness: The patient is a 76 year old white male with a past medical history of underlying atrial fibrillation-permanent, cardiomyopathy, abdominal aortic aneurysm status post rupture and status post repair and status post endoleak repair, aortic valve stenosis, hyperlipidemia, hypertension, diabetes mellitus, and thyroid disorder who presents for evaluation of CVA with findings of atrial fibrillation with rapid ventricular response. The patient apparently presented with symptoms of being confused, demonstrating expressive aphasia, left-sided weakness, and was subsequently diagnosed with a CVA and received TPA therapy. He was placed in the ICU for further evaluation and care. He has been reported as confused. At the present time he has received sedation therapy and appears to be resting more comfortably. There was no report of chest discomfort or difficulty breathing. He has been noted to be in his atrial fibrillation with rapid ventricular response. He has been treated medically. This has included IV beta-rubia therapy and now initiation of IV diltiazem therapy. As an outpatient he had been on medical management which had included oral beta-rubia therapy. He had also been on antiplatelet therapy. He had previously been on anticoagulant therapy prior to his abdominal aortic concerns. Since that time he has remained without anticoagulant therapy. Troponin I level has been negative. His ECG demonstrated atrial fibrillation with a rapid ventricular response with an occasional aberrantly conducted complex. He is also undergone follow-up evaluation with a transthoracic echocardiogram. His left ventricle was noted to have global left ventricular systolic dysfunction with an estimated LVEF of 35% with severe left atrial enlargement and moderate right atrial enlargement. He had mild mitral valve prolapse with mild diffuse mitral valve thickening with mild to moderate MR, moderate TR, and mild to moderate aortic valve stenosis. The estimated RV systolic pressure was 37 mmHg. [] Past Medical History Allergies/Adverse Reactions: Allergies Unable to Assess Allergy (Verified 03/12/17 14:04) Home Medications: Ambulatory Orders Medication Instructions Recorded Amlodipine [Norvasc] 10 mg PO DAILY 03/12/17 Clonidine HCl 0.3 mg PO DAILY 03/12/17 Levothyroxine [Synthroid] 112 mcg PO DAILY 03/12/17 Meloxicam [Meloxicam] 7.5 mg PO DAILY 03/12/17 Metformin HCl [Metformin HCl ER] 1,000 mg PO DAILY 03/12/17 Metoprolol Tartrate [Lopressor 50 mg PO DAILY 03/12/17 (Beta Rubai)] Rosuvastatin Calcium [Rosuvastatin 20 mg PO QHS 03/12/17 Calcium] Past Medical History (Chronic Problems): Chronic Problems Cardiomyopathy (Chronic) Aortic valve stenosis (Chronic) HLD (hyperlipidemia) (Chronic) Hypothyroidism (Chronic) Diabetes mellitus type 2 in nonobese (Chronic) Hypertension (Chronic) Surgical History: total knee arthroplasty - Bilateral, - - Abdominal aortic aneurysm repair, bilateral knee replacements Psychiatric History: No pertinent psych hx - *Family History Maternal History Items: Stroke Paternal History Items: Stroke Lives: Spouse/ Significant Other Smoking Status: Never smoker Tobacco Use: Non-smoker Alcohol: None Drugs: None Review of Systems - Review of Systems General: Denies: Fever, Night Sweats, Fatigue Cardiovascular: Denies: Chest Discomfort, Shortness of Breath, Orthopnea, PND, Peripheral Edema, Palpitations, Lightheadedness, Dizziness, Near Syncope, Syncope Respiratory: Denies: Cough, Sputum Production, Hemoptysis Genitourinary: Denies: Dysuria, Hematuria Neurological: Reports: Confusion, Weakness, - - Expressive aphasia Subjectve: Is a 76-year-old white male who appears to be sedated and resting comfortably at the moment. Objective: Vital Signs Temp Pulse Resp BP Pulse Ox 98.6 F 102 H 25 H 125/106 H 98 03/13/17 12:00 03/13/17 18:23 03/13/17 18:00 03/13/17 18:23 03/13/17 18:00 Oxygen Delivery Method Room Air Weight: 147 lb 0.773 oz Body Mass Index (BMI) 22.9 Intake and Output for Last 24 Hours 03/11/17 03/12/17 03/13/17 23:59 23:59 23:59 Intake Total 2122 / 2122 Output Total 3050 / 3050 Balance -928 / -928 Neck: No JVD Lungs: Clear to auscultation Cardiovascular: Irregular Rhythm, Normal S1, Normal S2 Murmur Murmur: Grade 2/6, High Pitched, Mid Systolic, LLSB, - - 2/6 holosystolic murmur at the apex/axilla Vascular: No Carotid Bruits Abdomen: Bowel Sounds Present, Soft, Non Tender Extremities: No edema Rhythm: Atrial fibrillation EKG: As noted above ECHO: As noted above Stress Test: 01/25/2012: Pharmacologic stress nuclear imaging study: Myocardial perfusion changes compatible with the effects of previous myocardial injury/infarction involving portions of the inferolateral segments with additional changes compatible with mikey-infarct related myocardial ischemia with subsequent associated findings compatible with an underlying cardiomyopathy with a gated LVEF of 15% CXR: Preliminary evaluation: The thoracic aorta demonstrates atherosclerotic changes and tortuosity; please see official report Assessment/Plan 1. Atrial fibrillation The patient continues in permanent atrial fibrillation. He has been treated in the past with antiplatelet therapy, anticoagulant therapy prior to his abdominal aortic aneurysm rupture/repair/endoleak/repair, and rate limiting therapy. At the present time he is continuing to be monitored. He is continuing rate limiting therapy as deemed appropriate with beta-blockers and calcium channel antagonist. He is not a candidate at this time for anticoagulant therapy based on his recent acute neurologic event and TPA therapy. Also there may be concerns going forward with respect to anticoagulant therapy based upon his previous abdominal aortic aneurysm events as well. The patient cannot be on anticoagulant therapy than he is not a candidate, barring an urgent/emergent need, to consider synchronized biphasic DC cardioversion therapy in an attempt to regain sinus rhythm. 2. Cardiomyopathy The patient does have an underlying cardiomyopathy. This may be related to his history of an underlying atrial dysrhythmia with tachycardic induced cardiomyopathy. However other etiologies have not been excluded including underlying CAD. He has declined previous evaluation with diagnostic cardiac catheterization in the past. Present time he will need to continue medical management as deemed appropriate. In the past the patient had been on medical therapy which had included beta-rubia therapy. He may need additional therapy going forward such as diuretics and afterload reducing agents. 3. Abdominal aortic aneurysm status post repair and status post endoleak repair And this is been a concern for the patient in the past. This is been a concern with respect to anticoagulant therapy. His abdominal aortic aneurysm history would have to be taken into consideration with respect to any future anticoagulants. 4. Aortic valve stenosis The patient does have a history of underlying aortic valve stenosis. He will need to continue to have his valvular heart disease followed by history, exam, and echocardiogram as deemed appropriate. 5. Hyperlipidemia The patient has been on lipid-lowering therapy in the past. He has been on rosuvastatin. This can be continued barring unforeseen concerns. 6. Hypertension The patient will need to continue antihypertensive therapy as deemed appropriate take into consideration his recent acute CVA. 7. Diabetes mellitus The patient will continue under the care of internal medicine for this. 8. Thyroid disorder She has been evaluated by endocrinology in the past. He will need to continue evaluation care per internal medicine and endocrinology as deemed appropriate. This note was generated with [employer] Dictation software. Every effort was made to ensure accuracy, however, computerized garage laborer mistakes may persist.
--- NOTE | 2017-03-13 19:22 | CON.PCM_ITS ---
Problem List (1) Atrial fibrillation Status: Acute Qualifiers: Atrial fibrillation type: permanent Qualified Code(s): I48.2 - Chronic atrial fibrillation (2) Cardiomyopathy Status: Chronic Qualifiers: Cardiomyopathy type: unspecified Qualified Code(s): I42.9 - Cardiomyopathy , unspecified (3) Aneurysm, abdominal aortic, with rupture Status: Resolved (4) Aortic valve stenosis Status: Chronic Qualifiers: Cardiac valve disease etiology: nonrheumatic Qualified Code(s): I35.0 - Nonrheumatic aortic (valve) stenosis (5) HLD (hyperlipidemia) Status: Chronic Qualifiers: Hyperlipidemia type: unspecified Qualified Code(s): E78.5 - Hyperlipidemia , unspecified (6) Hypertension Status: Chronic Qualifiers: Hypertension type: essential hypertension Qualified Code(s): I10 - Essential (primary) hypertension (7) Diabetes mellitus type 2 in nonobese Status: Chronic (8) Hypothyroidism Status: Chronic Qualifiers: Hypothyroidism type: unspecified Qualified Code(s): E03.9 - Hypothyroidism , unspecified (9) Acute thromboembolic cerebrovascular accident (CVA) Status: Acute Reason for Consult Date of Consultation: 03/13/17 History of Present Illness: The patient is a 76 year old white male with a past medical history of underlying atrial fibrillation-permanent, cardiomyopathy, abdominal aortic aneurysm status post rupture and status post repair and status post endoleak repair, aortic valve stenosis, hyperlipidemia, hypertension, diabetes mellitus, and thyroid disorder who presents for evaluation of CVA with findings of atrial fibrillation with rapid ventricular response. The patient apparently presented with symptoms of being confused, demonstrating expressive aphasia, left-sided weakness, and was subsequently diagnosed with a CVA and received TPA therapy. He was placed in the ICU for further evaluation and care. He has been reported as confused. At the present time he has received sedation therapy and appears to be resting more comfortably. There was no report of chest discomfort or difficulty breathing. He has been noted to be in his atrial fibrillation with rapid ventricular response. He has been treated medically. This has included IV beta-rubia therapy and now initiation of IV diltiazem therapy. As an outpatient he had been on medical management which had included oral beta- rubia therapy. He had also been on antiplatelet therapy. He had previously been on anticoagulant therapy prior to his abdominal aortic concerns. Since that time he has remained without anticoagulant therapy. Troponin I level has been negative. His ECG demonstrated atrial fibrillation with a rapid ventricular response with an occasional aberrantly conducted complex. He is also undergone follow-up evaluation with a transthoracic echocardiogram. His left ventricle was noted to have global left ventricular systolic dysfunction with an estimated LVEF of 35% with severe left atrial enlargement and moderate right atrial enlargement. He had mild mitral valve prolapse with mild diffuse mitral valve thickening with mild to moderate MR, moderate TR, and mild to moderate aortic valve stenosis. The estimated RV systolic pressure was 37 mmHg. [] Past Medical History Allergies/Adverse Reactions: Allergies Unable to Assess Allergy (Verified 03/12/17 14:04) Home Medications: Ambulatory Orders Medication Instructions Recorded Amlodipine [Norvasc] 10 mg PO DAILY 03/12/17 Clonidine HCl 0.3 mg PO DAILY 03/12/17 Levothyroxine [Synthroid] 112 mcg PO DAILY 03/12/17 Meloxicam [Meloxicam] 7.5 mg PO DAILY 03/12/17 Metformin HCl [Metformin HCl ER] 1,000 mg PO DAILY 03/12/17 Metoprolol Tartrate [Lopressor 50 mg PO DAILY 03/12/17 (Beta Rubia)] Rosuvastatin Calcium [Rosuvastatin 20 mg PO QHS 03/12/17 Calcium] Past Medical History (Chronic Problems): Chronic Problems Cardiomyopathy (Chronic) Aortic valve stenosis (Chronic) HLD (hyperlipidemia) (Chronic) Hypothyroidism (Chronic) Diabetes mellitus type 2 in nonobese (Chronic) Hypertension (Chronic) Surgical History: total knee arthroplasty - Bilateral, - - Abdominal aortic aneurysm repair, bilateral knee replacements Psychiatric History: No pertinent psych hx - *Family History Maternal History Items: Stroke Paternal History Items: Stroke Lives: Spouse/ Significant Other Smoking Status: Never smoker Tobacco Use: Non-smoker Alcohol: None Drugs: None Review of Systems - Review of Systems General: Denies: Fever, Night Sweats, Fatigue Cardiovascular: Denies: Chest Discomfort, Shortness of Breath, Orthopnea, PND, Peripheral Edema, Palpitations, Lightheadedness, Dizziness, Near Syncope, Syncope Respiratory: Denies: Cough, Sputum Production, Hemoptysis Genitourinary: Denies: Dysuria, Hematuria Neurological: Reports: Confusion, Weakness, - - Expressive aphasia Subjectve: Is a 76-year-old white male who appears to be sedated and resting comfortably at the moment. Objective: Vital Signs Temp Pulse Resp BP Pulse Ox 98.6 F 102 H 25 H 125/106 H 98 03/13/17 12:00 03/13/17 18:23 03/13/17 18:00 03/13/17 18:23 03/13/17 18:00 Oxygen Delivery Method Room Air Weight: 147 lb 0.773 oz Body Mass Index (BMI) 22.9 Intake and Output for Last 24 Hours 03/11/17 03/12/17 03/13/17 23:59 23:59 23:59 Intake Total 2122 / 2122 Output Total 3050 / 3050 Balance -928 / -928 Neck: No JVD Lungs: Clear to auscultation Cardiovascular: Irregular Rhythm, Normal S1, Normal S2 Murmur Murmur: Grade 2/6, High Pitched, Mid Systolic, LLSB, - - 2/6 holosystolic murmur at the apex/axilla Vascular: No Carotid Bruits Abdomen: Bowel Sounds Present, Soft, Non Tender Extremities: No edema Rhythm: Atrial fibrillation EKG: As noted above ECHO: As noted above Stress Test: 01/25/2012: Pharmacologic stress nuclear imaging study: Myocardial perfusion changes compatible with the effects of previous myocardial injury/ infarction involving portions of the inferolateral segments with additional changes compatible with mikey-infarct related myocardial ischemia with subsequent associated findings compatible with an underlying cardiomyopathy with a gated LVEF of 15% CXR: Preliminary evaluation: The thoracic aorta demonstrates atherosclerotic changes and tortuosity; please see official report Assessment/Plan 1. Atrial fibrillation The patient continues in permanent atrial fibrillation. He has been treated in the past with antiplatelet therapy, anticoagulant therapy prior to his abdominal aortic aneurysm rupture/repair/endoleak/repair, and rate limiting therapy. At the present time he is continuing to be monitored. He is continuing rate limiting therapy as deemed appropriate with beta-blockers and calcium channel antagonist. He is not a candidate at this time for anticoagulant therapy based on his recent acute neurologic event and TPA therapy. Also there may be concerns going forward with respect to anticoagulant therapy based upon his previous abdominal aortic aneurysm events as well. The patient cannot be on anticoagulant therapy than he is not a candidate, barring an urgent/emergent need, to consider synchronized biphasic DC cardioversion therapy in an attempt to regain sinus rhythm. 2. Cardiomyopathy The patient does have an underlying cardiomyopathy. This may be related to his history of an underlying atrial dysrhythmia with tachycardic induced cardiomyopathy. However other etiologies have not been excluded including underlying CAD. He has declined previous evaluation with diagnostic cardiac catheterization in the past. Present time he will need to continue medical management as deemed appropriate. In the past the patient had been on medical therapy which had included beta- rubia therapy. He may need additional therapy going forward such as diuretics and afterload reducing agents. 3. Abdominal aortic aneurysm status post repair and status post endoleak repair And this is been a concern for the patient in the past. This is been a concern with respect to anticoagulant therapy. His abdominal aortic aneurysm history would have to be taken into consideration with respect to any future anticoagulants. 4. Aortic valve stenosis The patient does have a history of underlying aortic valve stenosis. He will need to continue to have his valvular heart disease followed by history, exam, and echocardiogram as deemed appropriate. 5. Hyperlipidemia The patient has been on lipid-lowering therapy in the past. He has been on rosuvastatin. This can be continued barring unforeseen concerns. 6. Hypertension The patient will need to continue antihypertensive therapy as deemed appropriate take into consideration his recent acute CVA. 7. Diabetes mellitus The patient will continue under the care of internal medicine for this. 8. Thyroid disorder She has been evaluated by endocrinology in the past. He will need to continue evaluation care per internal medicine and endocrinology as deemed appropriate. This note was generated with [employer] Dictation software. Every effort was made to ensure accuracy, however, computerized pipe and boiler covers supervisor mistakes may persist.
--- NOTE | 2017-03-13 20:19 | CT_ITS ---
STUDY: CT BRAIN WITHOUT CONTRAST REASON FOR EXAM: Male, 76 years old. CVA RADIATION DOSAGE (If Supplied By Facility): CTDIvol = ( 44.99 ) mGy, DLP = ( 762.36 ) mGycm TECHNIQUE: Transaxial CT imaging of the brain was performed without administration of intravenous contrast material. Individualized dose optimization techniques were used for this CT. COMPARISON: 11.09 FINDINGS: Normal soft tissue structures. Normal calvarium. Mild atrophy and moderate periventricular white matter ischemic changes.. There is an acute hemorrhagic infarct in the left posterior temporal and frontal parietal region effacing the cortical sulci and producing mild mass effect upon left lateral ventricle which is displaced minimally across the midline Normal basal ganglia and thalami. Normal brainstem. Normal cerebellum. There are no findings of an acute ischemic infarction. Mucosal thickening of the left maxillary bilateral ethmoid sinuses CT/Brain/Head without Contrast IMPRESSION: Atrophy and periventricular white matter ischemic changes Acute hemorrhagic infarct in the left posterior temporal frontal and parietal lobes with mild mass effect upon left lateral ventricle and minimal midline displacement. There is increasing hemorrhagic transformation noted when compared with earlier exam N.B. : The above information has been verbally conveyed by Abhishek Su MD to Meme Isaacs RN, Hospital- In-Patient RN, on 03/13/2017 22:09:11 (ET). Electronically Signed: Abhishek Su MD at 21:54 EST , Service support , N.B. : The above information has been verbally conveyed by Abhishek Su MD to Meme Isaacs RN, Hospital- In-Patient RN, on 03/13/2017 22:09:11 (ET).
[2017-03-13] MEDS: Acetaminophen 650 MG Suppository RECTAL (20:45)
--- NOTE | 2017-03-13 22:24 | PCM.DC.SUM ---
Discharge Date and Diagnosis - Problem List Patient Problems: Active and Suspected Problems Intracranial hemorrhage (Acute) Atrial fibrillation (Acute) Received intravenous tissue plasminogen activator (tPA) in emergency department (Acute) Acute thromboembolic cerebrovascular accident (CVA) (Acute) Expressive aphasia (Acute) Date of Admission: 03/12/17 Date of Discharge: 03/13/17 - Primary Discharge Diagnosis Active and Suspected Problems Atrial fibrillation (Acute) Received intravenous tissue plasminogen activator (tPA) in emergency department (Acute) Acute thromboembolic cerebrovascular accident (CVA) (Acute) Expressive aphasia (Acute) - Secondary Discharge Diagnosis Chronic Problems Cardiomyopathy (Chronic) Aortic valve stenosis (Chronic) HLD (hyperlipidemia) (Chronic) Hypothyroidism (Chronic) 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 Subtle effacement of the sulcal markings in the left posterior parietal lobe suggestive of early ischemic insult. Mucosal thickening of the maxillary sinuses bilaterally. N.B. : The above information has been verbally conveyed by Nikita Davis MD to Cruz Sy, Referring Physician, on 03/12/2017 13:52:07 (ET). Electronically Signed: Nikita Davis MD at 13:53 EST Tel [phone], Service support , N.B. : The above information has been verbally conveyed by Nikita Davis MD to Cruz Sy, Referring Physician, on 03/12/2017 13:52:07 (ET). Chest X-Ray 03/12/17 13:31 IMPRESSION: Pleural parenchymal changes at the left lung base. Large hiatal hernia. Electronically Signed: Nikita Davis MD at 14:27 EST Tel [phone], Service support , Head CTA 03/12/17 14:07 IMPRESSION: Vascular variation as outlined. No evidence of occlusion or aneurysm. No focal area of significant stenosis. Electronically Signed: Shelley Rollins MD at 16:44 EST Tel , Service support , Neck CTA 03/12/17 14:07 IMPRESSION: Atherosclerosis. There is tortuosity of the internal carotid arteries with less than 50% stenosis by NASCET criteria. See above for details. Electronically Signed: Shelley Rollins MD at 16:53 EST Tel , Service support , Brain MRI 03/13/17 13:45 IMPRESSION: Left temporoparietal infarct as described. It is more evident on this exam than on the prior studies. It appears on gradient imaging that there is signal dropout centrally suggesting petechial hemorrhage. N.B. : The above information has been verbally conveyed by Shelley Rollins MD to Joan Adorno, Hospital- In-Patient RN, on 03/13/2017 17:13:07 (ET). Electronically Signed: Shelley Rollins MD at 16:26 EST Tel , Service support , N.B. : The above information has been verbally conveyed by Shelley Rollins MD to Joan Adorno, Hospital- In-Patient RN, on 03/13/2017 17:13:07 (ET). Brain CT 03/13/17 20:19 IMPRESSION: Atrophy and periventricular white matter ischemic changes Acute hemorrhagic infarct in the left posterior temporal frontal and parietal lobes with mild mass effect upon left lateral ventricle and minimal midline displacement. There is increasing hemorrhagic transformation noted when compared with earlier exam N.B. : The above information has been verbally conveyed by Abhishek Su MD to Meme Isaacs RN, Hospital- In-Patient RN, on 03/13/2017 22:09:11 (ET). Electronically Signed: Abhishek Su MD at 21:54 EST , Service support , N.B. : The above information has been verbally conveyed by Abhishek Su MD to Meme Isaacs RN, Hospital- In-Patient RN, on 03/13/2017 22:09:11 (ET). Operations: None Procedures: 2-D Echocardiogram, - - TPA Summary of Care Provided: The patient is a 76 year old M presents with an acute stroke. This is at 1230 on March 12. Patient received TPA and then was subsequently admitted to the ICU. While in the ICU, particularly today, patient became more agitated. Patient did require Precedex to help sedate him. Patient did have an MRI this afternoon that showed a left temporal stroke but also showing what appears to be petechial hemorrhage associated with that. Patient since 7 PM is also been having fevers of 40?C. I discussed the case with the patient's and recommended transfer to facility with neurosurgery backup. Though I did inform her that likely patient would not require any kind of surgical intervention, she preferred [facility]. I spoke with Dr. David Burns and explained the case with him. He agreed to accept the patient onto his service as a transfer. Patient still remains on the Precedex drip given some agitation though it has been tapered down. [] Discharge Diet: Low fat/ Low Cholesterol Discharge Activity: - - activity as tolerated Home Medications: Medications to take at Discharge Amlodipine [Norvasc] 10 mg PO DAILY 03/12/17 Clonidine HCl 0.3 mg PO DAILY 03/12/17 Levothyroxine [Synthroid] 112 mcg PO DAILY 03/12/17 Meloxicam [Meloxicam] 7.5 mg PO DAILY 03/12/17 Metformin HCl [Metformin HCl ER] 1,000 mg PO DAILY 03/12/17 Metoprolol Tartrate [Lopressor (Beta Rubia)] 50 mg PO DAILY 03/12/17 Rosuvastatin Calcium [Rosuvastatin Calcium] 20 mg PO QHS 03/12/17 Primary Care Physician: Dank Solares MD [Primary Care Provider] - Disposition: Acute care Hospital Minutes spent on discharge:: 40 Patient Condition:: Guarded Meaningful Use Info Meaningful Use Diagnoses (Choose all that apply): Ischemic CVA - CVA Therapy Assessed for PT,OT and/or ST?: No Reason therapy not assessed?: Patient Noncompliant - post TPA - Ischemic Stroke Antithrombotic order at d/c?: No Reason antithrombotic not ordered: Medical Contraindication Dx of Atrial fib/flutter?: Yes Anticoagulant at discharge?: No Reason anticoagulant not ordered: Medical Contraindication Statins at discharge?: No Reason Statin not ordered: Medical Contraindication Primary Dx Acute Ischemic CVA?: Yes IV tPA ordered during stay?: Yes Code Visit Inpatient E&M: 80358 Disch Hosp
--- NOTE | 2017-03-13 22:29 | DS.PCM_ITS ---
Discharge Date and Diagnosis - Problem List Patient Problems: Active and Suspected Problems Intracranial hemorrhage (Acute) Atrial fibrillation (Acute) Received intravenous tissue plasminogen activator (tPA) in emergency department (Acute) Acute thromboembolic cerebrovascular accident (CVA) (Acute) Expressive aphasia (Acute) Date of Admission: 03/12/17 Date of Discharge: 03/13/17 - Primary Discharge Diagnosis Active and Suspected Problems Atrial fibrillation (Acute) Received intravenous tissue plasminogen activator (tPA) in emergency department (Acute) Acute thromboembolic cerebrovascular accident (CVA) (Acute) Expressive aphasia (Acute) - Secondary Discharge Diagnosis Chronic Problems Cardiomyopathy (Chronic) Aortic valve stenosis (Chronic) HLD (hyperlipidemia) (Chronic) Hypothyroidism (Chronic) 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 Subtle effacement of the sulcal markings in the left posterior parietal lobe suggestive of early ischemic insult. Mucosal thickening of the maxillary sinuses bilaterally. N.B. : The above information has been verbally conveyed by Nikita Davis MD to Cruz Sy, Referring Physician, on 03/12/2017 13:52:07 (ET). Electronically Signed: Nikita Davis MD at 13:53 EST Tel [phone], Service support , N.B. : The above information has been verbally conveyed by Nikita Davis MD to Cruz Sy, Referring Physician, on 03/12/2017 13:52:07 (ET). Chest X-Ray 03/12/17 13:31 IMPRESSION: Pleural parenchymal changes at the left lung base. Large hiatal hernia. Electronically Signed: Nikita Davis MD at 14:27 EST Tel [phone], Service support , Head CTA 03/12/17 14:07 IMPRESSION: Vascular variation as outlined. No evidence of occlusion or aneurysm. No focal area of significant stenosis. Electronically Signed: Shelley Rollins MD at 16:44 EST Tel , Service support , Neck CTA 03/12/17 14:07 IMPRESSION: Atherosclerosis. There is tortuosity of the internal carotid arteries with less than 50% stenosis by NASCET criteria. See above for details. Electronically Signed: Shelley Rollins MD at 16:53 EST Tel , Service support , Brain MRI 03/13/17 13:45 IMPRESSION: Left temporoparietal infarct as described. It is more evident on this exam than on the prior studies. It appears on gradient imaging that there is signal dropout centrally suggesting petechial hemorrhage. N.B. : The above information has been verbally conveyed by Shelley Rollins MD to Joan Adorno, Hospital- In-Patient RN, on 03/13/2017 17:13:07 (ET). Electronically Signed: Shelley Rollins MD at 16:26 EST Tel , Service support , N.B. : The above information has been verbally conveyed by Shelley Rollins MD to Joan Adorno, Hospital- In-Patient RN, on 03/13/2017 17:13:07 (ET). Brain CT 03/13/17 20:19 IMPRESSION: Atrophy and periventricular white matter ischemic changes Acute hemorrhagic infarct in the left posterior temporal frontal and parietal lobes with mild mass effect upon left lateral ventricle and minimal midline displacement. There is increasing hemorrhagic transformation noted when compared with earlier exam N.B. : The above information has been verbally conveyed by Abhishek Su MD to Meme Isaacs RN, Hospital- In-Patient RN, on 03/13/2017 22:09:11 (ET). Electronically Signed: Abhishek Su MD at 21:54 EST , Service support , N.B. : The above information has been verbally conveyed by Abhishek Su MD to Meme Isaacs RN, Hospital- In-Patient RN, on 03/13/2017 22:09:11 (ET). Operations: None Procedures: 2-D Echocardiogram, - - TPA Summary of Care Provided: The patient is a 76 year old M presents with an acute stroke. This is at 1230 on March 12. Patient received TPA and then was subsequently admitted to the ICU. While in the ICU, particularly today, patient became more agitated. Patient did require Precedex to help sedate him. Patient did have an MRI this afternoon that showed a left temporal stroke but also showing what appears to be petechial hemorrhage associated with that. Patient since 7 PM is also been having fevers of 40?C. I discussed the case with the patient's and recommended transfer to facility with neurosurgery backup. Though I did inform her that likely patient would not require any kind of surgical intervention, she preferred [facility]. I spoke with Dr. David Burns and explained the case with him. He agreed to accept the patient onto his service as a transfer. Patient still remains on the Precedex drip given some agitation though it has been tapered down. [] Discharge Diet: Low fat/ Low Cholesterol Discharge Activity: - - activity as tolerated Home Medications: Medications to take at Discharge Amlodipine [Norvasc] 10 mg PO DAILY 03/12/17 Clonidine HCl 0.3 mg PO DAILY 03/12/17 Levothyroxine [Synthroid] 112 mcg PO DAILY 03/12/17 Meloxicam [Meloxicam] 7.5 mg PO DAILY 03/12/17 Metformin HCl [Metformin HCl ER] 1,000 mg PO DAILY 03/12/17 Metoprolol Tartrate [Lopressor (Beta Rubia)] 50 mg PO DAILY 03/12/17 Rosuvastatin Calcium [Rosuvastatin Calcium] 20 mg PO QHS 03/12/17 Primary Care Physician: Dank Solares MD [Primary Care Provider] - Disposition: Acute care Hospital Minutes spent on discharge:: 40 Patient Condition:: Guarded Meaningful Use Info Meaningful Use Diagnoses (Choose all that apply): Ischemic CVA - CVA Therapy Assessed for PT,OT and/or ST?: No Reason therapy not assessed?: Patient Noncompliant - post TPA - Ischemic Stroke Antithrombotic order at d/c?: No Reason antithrombotic not ordered: Medical Contraindication Dx of Atrial fib/flutter?: Yes Anticoagulant at discharge?: No Reason anticoagulant not ordered: Medical Contraindication Statins at discharge?: No Reason Statin not ordered: Medical Contraindication Primary Dx Acute Ischemic CVA?: Yes IV tPA ordered during stay?: Yes Code Visit Inpatient E&M: 41797 Disch Hosp
[2017-03-13 23:05] LABS: Absolute Lymphocyte Count 0.63 X10^3/ul (0.83-4.51); Absolute Neutrophil Count 13.4 X10^3/uL (2.0-7.7); Basophil# 0.01 X10^3/uL; Basophil% 0.1 % (0-1); Hematocrit 40.6 % (40-54); Hemoglobin 13.3 g/dl (13.0-16.5); Lymphocyte # 0.63 X10^3/ul (4.0); Lymphocyte % 4.1 % (19-41); Mean Corp Hgb Conc 32.8 g/gl (32-36); Mean Corpuscular Hgb 28.1 pg (27.0-32.0); Mean Corpuscular Volume 85.8 fL (80-94); Mean Platelet Vol. 9.5 fl (6.2-12.0); Monocyte% 8.5 % (0-10); Neutrophil # 13.41 X10^3/uL (2.7-7.7); Neutrophil % 87.1 % (47-70); POSITIVE COUNT NO; POSITIVE DIFFERENTIAL NO; POSITIVE MORPHOLOGY NO; Platelet Count 353 K/mm3 (150-450); RBC Distribution Width CV 16.4 % (11.6-14.6); RBC Distribution Width SD 51.7 fl (35.1-43.9); Red Blood Count 4.73 M/mm3 (4.6-6.2); White Blood Count 15.4 K/mm3 (4.4-11.0)
[2017-03-13 23:11] LABS: International Normalized Ratio 1.2; Prothrombin Time (Protime)PT. 15.1 SECONDS (11.7-14.9)
[2017-03-13 23:12] LABS: Partial Thromboplast Time 32.5 Seconds (24.1-36.2)
[2017-03-13 23:37] LABS: Bedside Glucose 118 mg/dL (70-110)
--- NOTE | 2017-03-13 23:53 | NURSING ---
Pt transferred to [facility] at this time via life flight. Report given to flight RN. Report given to [facility] [employer]. Pt admitting to room 3711 in the MICU under the care of Dr. Burns. , next of kin, aware and consents to transfer.
== END 2017-03-13 23:50 | disposition short-term general hospital (02) | DRG 61 ==
LOC: ED 16:59 → ICU 17:30
PROVIDERS: Psychiatry & Neurology Neurology; Admitting Provider Internal Medicine; Emergency Provider Emergency Medicine; Family Provider Family Medicine; PCP Family Medicine; Visit Provider Hospitalist
DX: I63.40 Cerebral infarction due to embolism of unspecified cerebral artery (principal); I61.1 Nontraumatic intracerebral hemorrhage in hemisphere, cortical; G83.24 Monoplegia of upper limb affecting left nondominant side; R47.01 Aphasia; R29.810 Facial weakness; R29.716 NIHSS score 16; I42.9 Cardiomyopathy, unspecified; I48.2 Chronic atrial fibrillation; I10 Essential (primary) hypertension; E11.9 Type 2 diabetes mellitus without complications; E03.9 Hypothyroidism, unspecified; E78.00 Pure hypercholesterolemia, unspecified; R50.9 Fever, unspecified; R45.1 Restlessness and agitation; M19.90 Unspecified osteoarthritis, unspecified site; Z96.653 Presence of artificial knee joint, bilateral; Z79.84 Long term (current) use of oral hypoglycemic drugs; Z79.82 Long term (current) use of aspirin; Z79.899 Other long term (current) drug therapy
CPT/HCPCS: 70450; 70496; 70498; 70551; 71045; 80048; 82962; 84484; 85025; 85610; 85730; 87641; 92523; 93005; 93306; 99284; J2997; J7030; Q9967; A4216

== ENCOUNTER → 2017-06-04 16:09 | Outpatient (CLI) | payer SELFPAY ==
[2017-06-04 17:20] LABS: ALB/GLOB Ratio 0.6 RATIO (0.9-2.4); AST(SGOT) 21 U/L (15-37); Alanine Aminotransfer ALT/SGPT 19 U/L (16-61); Albumin, Serum 2.8 g/dL (3.2-5.0); Alkaline Phosphatase 173 U/L (45-117); Anion Gap 8 (5-15); BUN 17 mg/dL (7-18); BUN/Creat Ratio 15.9 RATIO (10-20); Calcium,Total 8.8 mg/dL (8.5-10.1); Chloride 101 mmol/L (98-107); Creatinine, Serum 1.07 mg/dL (0.70-1.30); EST Glomerular Filtration Rate 72 mL/min (>60); Est Glom Filt Rate - Afr Amer 87 mL/min (>60); Glucose 127 mg/dL (74-106); Potassium 4.2 mmol/L (3.5-5.1); Protein, Total 7.8 g/dL (6.4-8.2); Sodium Level 138 mmol/L (136-145)
== END ==
PROVIDERS: Family Provider Family Medicine; PCP Family Medicine; Visit Provider Internal Medicine Endocrinology, Diabetes & Metabolism
DX: E89.0 Postprocedural hypothyroidism (principal)
CPT/HCPCS: 36415; 80053; 84443

== ENCOUNTER → 2017-07-27 13:28 | Outpatient (CLI) | payer MEDICARE, SELFPAY | PROVIDERS: Family Provider Family Medicine; PCP Family Medicine; Visit Provider Internal Medicine Endocrinology, Diabetes & Metabolism | DX: E89.0 Postprocedural hypothyroidism (principal) | CPT/HCPCS: 36415; 84443 ==

== ENCOUNTER → 2017-11-16 15:38 | Outpatient (CLI) | payer MEDICARE, OTHER, SELFPAY ==
--- NOTE | 2017-11-16 15:46 | CT_ITS ---
STUDY: CTA OF THE ABDOMINAL AORTA REASON FOR EXAM: Male, 77 years old. Follow-up abdominal aortic aneurysm. RADIATION DOSAGE (If Supplied By Facility): CTDIvol = ( ) mGy, DLP = ( ) mGycm TECHNIQUE: Axial CT angiography multi-detector data acquisition was obtained from the descending thoracic aorta to the level of the common iliac arteries following intravenous administration of 100ML ml of Isovue 300 contrast. Axial images and MIP images were reconstructed from the axial data set. Post-processing of the angiographic images was performed, with multiplanar reformation and 3D reconstruction. Individualized dose optimization techniques were used for this CT. TECHNICAL QUALITY: Good COMPARISON: 11/19/2016. Descriptors of Narrowing: None (0%) Mild (< 50%) Moderate (50-70%) Severe (70-90%) Subtotal/Total Occlusion (90-100%) Non-Evaluable (technically non-diagnostic FINDINGS: Abdominal aorta: There are diffuse atherosclerotic calcification and tortuosity of the abdominal aorta. There again is a large infrarenal fusiform abdominal aortic aneurysm measuring about 5.8 x 6.1 cm in AP and transverse diameters and extends for a length of approximately 9.5 cm. It appears to be slightly larger in diameter than the previous exam. Endoluminal aortic stent is again seen extending from the level of the celiac axis to the level of the common iliac arteries bilaterally. There are peripheral clots. There is no evidence of extravasation. Celiac and superior mesenteric arteries: Minimal atherosclerotic calcification of the origin of the celiac axis. Otherwise no significant stenosis. Inferior mesenteric artery: No demonstrated narrowing. Right renal artery(arteries): No demonstrated narrowing. Left renal artery(arteries): No demonstrated narrowing. Right common iliac artery: No demonstrated definite significant stenosis. Right external iliac artery: No demonstrated definite significant stenosis. Right internal iliac artery: No demonstrated definite significant stenosis. Left common iliac artery: No demonstrated definite significant stenosis Left external iliac artery: No demonstrated definite significant stenosis Left internal iliac artery: No demonstrated definite significant stenosis. There again is a large hiatal hernia containing most of the stomach and bowel loops unchanged since the prior examination. There are nonspecific fluid-filled small bowel loops. Nonobstructing bilateral renal stones and renal cysts are again seen. The bony structures are unchanged. CT/CTA Abdomen W/WO Contrast IMPRESSION: 1. Large fusiform abdominal aortic aneurysm with intraluminal stent as described above slightly larger in size than the previous examination. 2. No evidence of extravasation or leakage. 3. Large hiatal hernia containing stomach and bowel loops unchanged 4. Small bilateral nonobstructing renal stones unchanged.. Electronically Signed: Donny Solorzano MD at 13:44 EDT Tel , Service support ,
== END ==
PROVIDERS: Family Provider Family Medicine; PCP Family Medicine; Referring Provider Internal Medicine Interventional Cardiology; Visit Provider Internal Medicine Interventional Cardiology
DX: I48.1 Persistent atrial fibrillation (principal); I71.4 Abdominal aortic aneurysm, without rupture; E78.00 Pure hypercholesterolemia, unspecified
CPT/HCPCS: 74175; Q9967

== ENCOUNTER → 2018-01-10 12:37 | Outpatient (CLI) | payer MEDICARE, OTHER, SELFPAY ==
[2018-01-08 13:24] VITALS: BMI 22.9
[2018-01-10 14:23] LABS: ALB/GLOB Ratio 0.8 RATIO (0.9-2.4); AST(SGOT) 18 U/L (15-37); Alanine Aminotransfer ALT/SGPT 20 U/L (16-61); Albumin, Serum 3.4 g/dL (3.2-5.0); Alkaline Phosphatase 138 U/L (45-117); Anion Gap 8 (5-15); BUN 15 mg/dL (7-18); BUN/Creat Ratio 16.3 RATIO (10-20); Calcium,Total 8.8 mg/dL (8.5-10.1); Chloride 104 mmol/L (98-107); Creatinine, Serum 0.92 mg/dL (0.70-1.30); EST Glomerular Filtration Rate 85 mL/min (>60); Est Glom Filt Rate - Afr Amer 103 mL/min (>60); Globulin 4.5 g/dL (2.2-4.2); Glucose 94 mg/dL (74-106); Potassium 3.8 mmol/L (3.5-5.1); Protein, Total 7.9 g/dL (6.4-8.2); Sodium Level 141 mmol/L (136-145)
[2018-01-11 19:07] LABS: Alkaline Phosphatase, Serum 126 IU/L (39-117); Bone Fraction 14 % (12-68); Liver Fraction 86 % (13-88)
[2018-01-12 12:00] LABS: Intestinal Fraction 0 % (0-18)
== END ==
PROVIDERS: Family Provider Family Medicine; PCP Family Medicine; Referring Provider Internal Medicine Endocrinology, Diabetes & Metabolism; Visit Provider Internal Medicine Endocrinology, Diabetes & Metabolism
DX: E89.0 Postprocedural hypothyroidism (principal); R94.5 Abnormal results of liver function studies; R74.8 Abnormal levels of other serum enzymes
CPT/HCPCS: 36415; 80053; 84075; 84080; 84443

== ENCOUNTER → 2018-04-15 12:23 | Outpatient (CLI) | payer MEDICARE, OTHER, SELFPAY ==
[2018-01-08 13:24] VITALS: BMI 22.9
[2018-04-15 13:17] LABS: Absolute Neutrophil Count 7.7 X10^3/uL (2.0-7.7); Basophil# 0.05 X10^3/uL; Basophil% 0.5 % (0-1); Eosinophil# 0.29 X10^3/uL; Eosinophils% 2.9 % (0-5); Hemoglobin 13.2 g/dl (13.0-16.5); Lymphocyte % 12.9 % (19-41); Mean Corp Hgb Conc 30.7 g/gl (32-36); Mean Corpuscular Hgb 27.1 pg (27.0-32.0); Mean Corpuscular Volume 88.3 fL (80-94); Mean Platelet Vol. 9.3 fl (6.2-12.0); Monocyte# 0.66 X10^3/uL; Monocyte% 6.5 % (0-10); Neutrophil # 7.74 X10^3/uL (2.7-7.7); Neutrophil % 76.8 % (47-70); Platelet Count 338 K/mm3 (150-450); RBC Distribution Width CV 17.2 % (11.6-14.6); RBC Distribution Width SD 55.2 fl (35.1-43.9); Red Blood Count 4.87 M/mm3 (4.6-6.2); White Blood Count 10.1 K/mm3 (4.4-11.0)
[2018-04-15 13:20] LABS: POSITIVE COUNT NO; POSITIVE DIFFERENTIAL NO; POSITIVE MORPHOLOGY NO
[2018-04-15 13:26] LABS: Hemoglobin A1c 5.6 % (4.2-6.3)
[2018-04-15 14:01] LABS: ALB/GLOB Ratio 0.7 RATIO (0.9-2.4); AST(SGOT) 20 U/L (15-37); Alanine Aminotransfer ALT/SGPT 22 U/L (16-61); Albumin, Serum 3.2 g/dL (3.2-5.0); Alkaline Phosphatase 176 U/L (45-117); Anion Gap 11 (5-15); BUN 18 mg/dL (7-18); BUN/Creat Ratio 16.5 RATIO (10-20); Chloride 104 mmol/L (98-107); Cholesterol 195 mg/dL (200); Creatinine, Serum 1.09 mg/dL (0.70-1.30); EST Glomerular Filtration Rate 70 mL/min (>60); Est Glom Filt Rate - Afr Amer 85 mL/min (>60); Globulin 4.6 g/dL (2.2-4.2); Glucose 98 mg/dL (74-106); High Density Lipoprotein 50 mg/dL; PSA,Total - Annual Screen 0.88 ng/mL (0.00-4.00); Potassium 4.4 mmol/L (3.5-5.1); Protein, Total 7.8 g/dL (6.4-8.2); Sodium Level 142 mmol/L (136-145); Thyroid Stim Hormone (TSH) 0.67 uIU/mL (0.358-3.74); Triglycerides 102 mg/dL; Very Low Density Lipoprotein 20 mg/dL (5-40)
[2018-04-15 14:04] LABS: Homocysteine 16.6 umol/L (3.2-10.7)
== END ==
PROVIDERS: Family Provider Family Medicine; PCP Family Medicine; Referring Provider Psychiatry & Neurology Neurology; Visit Provider Psychiatry & Neurology Neurology
DX: Z00.00 Encounter for general adult medical examination without abnormal findings (principal); E11.9 Type 2 diabetes mellitus without complications; I10 Essential (primary) hypertension; E78.00 Pure hypercholesterolemia, unspecified; Z12.5 Encounter for screening for malignant neoplasm of prostate; Z86.73 Personal history of transient ischemic attack (TIA), and cerebral infarction without residual deficits
CPT/HCPCS: 36415; 80053; 80061; 81002; 83036; 83090; 84153; 84443; 85025; G0103

== ENCOUNTER → 2018-04-16 13:30 | Outpatient (CLI) | payer MEDICARE, OTHER, SELFPAY ==
[2018-01-08 13:24] VITALS: BMI 22.9
[2018-04-16 13:59] LABS: Color, Urine Yellow (Yellow); Glucose, Dipstick Normal (Normal); Ketone-Dipstick Negative (Negative); Leukocyte Esterase-Dipstick 25 /ul (Negative); Nitrite-Dipstick Negative (Negative); Occult Blood-Urine Negative /ul (Negative); Protein-Dipstick Negative (Negative); Urine Bilirubin Dipstick Negative (Negative); Urine Clarity Clear (Clear); Urine Urobilinogen Normal (Normal)
== END ==
PROVIDERS: Family Provider Family Medicine; PCP Family Medicine; Referring Provider Family Medicine; Visit Provider Family Medicine
DX: Z00.00 Encounter for general adult medical examination without abnormal findings (principal); E11.9 Type 2 diabetes mellitus without complications; I10 Essential (primary) hypertension; E78.00 Pure hypercholesterolemia, unspecified
CPT/HCPCS: 81002

== ENCOUNTER → 2018-04-17 17:24 | Outpatient (CLI) | payer MEDICARE, OTHER, SELFPAY ==
[2018-01-08 13:24] VITALS: BMI 22.9
--- NOTE | 2018-04-17 17:27 | CT_ITS ---
STUDY: CTA OF THE BRAIN REASON FOR EXAM: Male, 77 years old. General headaches. Follow-up hemorrhage and CVA 2 years ago. History of diabetes and hypertension. RADIATION DOSAGE (If Supplied By Facility): CTDIvol = ( 30.38 ) mGy, DLP = ( 1235.98 ) mGycm TECHNIQUE: CT angiography was performed with a multi-detector CT scanner. Data acquisition was obtained from the skull base through the vertex following intravenous administration of Isovue 370 75mL IV. MIP images were reconstructed from the axial data set. Post-processing of the angiographic images was performed, with multiplanar reformation and 3D reconstruction. Individualized dose optimization techniques were used for this CT. COMPARISON: 03/12/2017. FINDINGS: Normal bilateral petrous carotid arteries. Nonocclusive the calcified plaques along the right cavernous carotid artery with a normal supraclinoid bifurcation. Nonocclusive calcified plaque along the left cavernous carotid artery with a normal supraclinoid bifurcation. Normal right A1 segment of the anterior cerebral artery. Normal left A1 segment of the anterior cerebral artery. Normal intact anterior communicating artery (ACOM). Normal bilateral A2 segments of the anterior cerebral arteries. Normal right M1 and M2 segments of the middle cerebral arteries, with a normal M1 bifurcation. Normal left M1 and M2 segments of the middle cerebral arteries, with a normal M1 bifurcation. Missing posterior temporal branch of the left middle cerebral artery and partial reconstitution of the previously occluded temporo-occipital branch of the left middle cerebral artery. Normal right posterior communicating artery (PCOM). Normal left posterior communicating artery (PCOM). Normal bilateral vertebral arteries. 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 This accounts for the right superior cerebellar artery arising off the right P1 segment. The left P1 segment is markedly hypoplastic. The visualized bilateral superior cerebellar (SCA) arteries are normal. Hypoplastic left P1 segment. Normal bilateral P1, P2 and visualized P3 segments of the posterior cerebral arteries. There is no demonstrated aneurysm of the [place] of [place]. Large cortical-based ischemic infarct involving the left temporal lobe and left temporal occipital lobe. This is now old. CT/CTA Head W/WO Contrast IMPRESSION: 1. Persistent occlusion in the posterior temporal branch of the left middle cerebral artery and partial distal reconstitution of the previously occluded temporo-occipital branch of the left middle cerebral artery. This was most likely cardioembolic. This explains the cortical-based ischemic infarct involving the left temporal lobe and left temporal occipital lobe. 2. Nonocclusive calcified plaques along the cavernous segments of both internal carotid arteries. 3. No other suspicious vaso-occlusive disease of the anterior and posterior intracranial circulation. 4. 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 This accounts for the right superior cerebellar artery arising off the right P1 segment. The left P1 segment is hypoplastic. 5. Cystic encephalomalacia of the large cortical-based ischemic infarct involving the left temporal lobe and the left temporo-occipital lobe. 6. No other additional findings or changes since 03/12/2017. Electronically Signed: Ze Haynes MD at 11:22 EDT , Service support ,
== END ==
PROVIDERS: Family Provider Family Medicine; PCP Family Medicine; Referring Provider Psychiatry & Neurology Neurology; Visit Provider Psychiatry & Neurology Neurology
DX: I61.9 Nontraumatic intracerebral hemorrhage, unspecified (principal)
CPT/HCPCS: 70496; Q9967

== ENCOUNTER → 2018-04-23 09:45 | Outpatient (CLI) | payer MEDICARE, OTHER, SELFPAY ==
[2018-01-08 13:24] VITALS: BMI 22.9
--- NOTE | 2018-04-23 09:48 | CDU_ITS ---
Reason For Study: CVA Rt. Velocities/BP Lt. Velocities/BP Prox CCA 41.5/11.4 cm/sec. Prox CCA 42.1/11.4 cm/sec. Mid CCA 42.9/11.4 cm/sec. Mid CCA 38.8/9.4 cm/sec. Dist CCA 38.8/11.4 cm/sec. Dist CCA 35.1/9.0 cm/sec. Prox ICA 35.4/13.0 cm/sec. Prox ICA 34.4/12.4 cm/sec. Mid ICA 40.5/16.1 cm/sec. Mid ICA 53.1/18.7 cm/sec. Dist ICA 44.3/16.3 cm/sec. Dist ICA 64.9/16.7 cm/sec. Rt. ICA/CCA = 1.0. Lt. ICA/CCA = 1.7. Prox ECA 40.1/7.5 cm/sec. Prox ECA 42.8/9.4 cm/sec. Rt. Vert. 38.9/11.4 cm/sec. Lt. Vert. 39.7/10.4 cm/sec. Right Extracranial There is no significant atherosclerotic plaque noted in the right common carotid artery. There is heterogeneous, irregular atherosclerotic plaque noted in the right internal carotid artery. There is heterogeneous, irregular atherosclerotic plaque noted in the right external carotid artery. Antegrade flow is noted in the right vertebral artery. Left Extracranial There is heterogeneous, irregular atherosclerotic plaque noted in the left common carotid artery. There is heterogeneous, irregular atherosclerotic plaque noted in the left internal carotid artery. The atherosclerotic plaque causes acoustic shadowing. There is intimal thickening but no significant atherosclerotic plaque noted in the left external carotid artery. Antegrade flow is noted in the left vertebral artery. Procedure Carotid Duplex [id number]. Exam performed in department. Interpretation Summary Mild (<50%) stenosis right extracranial internal carotid. Mild (<50%) stenosis left extracranial internal carotid. However, acoustic shadowing obscures lentz-scale visualization of the proximal left internal carotid artery, rendering evaluation incomplete. As a result, the degree of stenosis may exceed that which is estimated by velocity criteria alone. Clinical correlation is advised, and an alternative imaging modality may be indicated. Flow within the vertebral arteries is antegrade bilaterally. Ordering Physician: Cooper Rowell Referring Physician: Davey Solares M.D. Performed By: Rashmi Witt RVT
--- NOTE | 2018-04-23 10:12 | ECHOD_ITS ---
Reason For Study: STROKE Procedure This was a 2D Doppler, Color Flow transthoracic echocardiogram. Exam performed in department. Left Ventricle Normal size and thickness. The estimated ejection fraction is 55 %. Unable to assess diastolic dysfunction due to arrhythmia. No regional wall motion abnormalities noted. Right Ventricle Moderately dilated right ventricle. Normal systolic function. Atria The left atrium is severely enlarged. The right atrium is severely enlarged. Normal atrial septum. Mitral Valve Mild diffuse mitral valve thickening. Moderately severe (3+) posteriorly directed mitral valve insufficiency. Tricuspid Valve Normal tricuspid valve. Severe (4+) tricuspid valve insufficiency. Right ventricular systolic pressure estimated to be 53 mmHg. Severe pulmonary hypertension. Aortic Valve Trisinus/trileaflet aortic valve. Moderate focal aortic valve thickening. Moderate focal aortic valve calcification. Immobile right coronary cusp. Mild aortic stenosis. Peak aortic valve gradient 15 mmHg. Mean aortic valve gradient 9 mmHg. Calculated aortic valve area (continuity equation) is 0.94 cm2. Mild (1+) aortic valve insufficiency. Pulmonic Valve Normal pulmonic valve. Trivial pulmonic valve insufficiency. Great Vessels Calcified aortic root. Mild atherosclerosis of the aortic arch. The inferior vena cava is dilated. Inferior vena cava collapse with sniff. Pericardium/Pleural No pericardial effusion. MMode/2D Measurements & Calculations LVIDd: 4.2 cm IVSd: 1.2 cm LVOT diam: 2.0 cm LVIDs: 2.9 cm LVPWd: 1.1 cm LVOT area: 3.2 cm2 RVDd: 4.1 cm FS: 29.6 % Ao root diam: 3.5 cm LAV(MOD-bp): 116.6 ml LVAd ap4: 28.6 cm2 LAV(MOD-bp) Indexed: 69.2 ml/m2 EDV(MOD-sp4): 87.0 ml LAV(MOD-sp2): 100.6 ml EDV(sp4-el): 88.5 ml LAV(MOD-sp4): 120.7 ml LVAs ap4: 20.1 cm2 ESV(MOD-sp4): 50.8 ml ESV(sp4-el): 50.6 ml EF(MOD-sp4): 41.6 % EF(sp4-el): 42.8 % SV(MOD-sp4): 36.2 ml SV(sp4-el): 37.9 ml Aortic Valve Planimetry: 1.1 cm2 LA A4 area: 35.1 cm2 LA dimension(2D): 5.1 cm RA A4 area: 25.6 cm2 Time Measurements MV dec time: 0.15 sec Doppler Measurements & Calculations MV E max lillie: 109.0 cm/sec Ao V2 max: 194.4 cm/sec LV V1 max: 56.2 cm/sec Ao max P.3 mmHg LV V1 max P.3 mmHg Ao V2 mean: 145.4 cm/sec LV V1 mean P.74 mmHg Ao mean P.3 mmHg LV V1 mean: 40.7 cm/sec Ao V2 VTI: 35.4 cm LV V1 VTI: 10.4 cm PETER(I,D): 0.95 cm2 PETER(V,D): 0.94 cm2 SV(LVOT): 33.8 ml PA V2 max: 90.9 cm/sec TR max lillie: 307.1 cm/sec TR max P.8 mmHg Interpretation Summary The estimated ejection fraction is 55 %. Unable to assess diastolic dysfunction due to arrhythmia. Moderately dilated right ventricle. The left atrium is severely enlarged. The right atrium is severely enlarged. Mild diffuse mitral valve thickening. Moderately severe (3+) posteriorly directed mitral valve insufficiency. Severe (4+) tricuspid valve insufficiency. Right ventricular systolic pressure estimated to be 53 mmHg. Severe pulmonary hypertension. Mild (1+) aortic valve insufficiency. Mild aortic stenosis, probably underestimated. Calculated aortic valve area (continuity equation) is 0.94 cm2. Pt appears to be in atrial fibrillation. Compared to echo report dated 03/13/2017, LV function has improved from 35% to 55% and RVSP had worsened from 37 to 53 mm Hg.. Ordering Physician: Cooper Rowell Referring Physician: HOA CORDON Performed By: Jessica Watson, RDCS, RVT
== END ==
PROVIDERS: Family Provider Family Medicine; PCP Family Medicine; Referring Provider Psychiatry & Neurology Neurology; Visit Provider Psychiatry & Neurology Neurology
DX: R47.01 Aphasia (principal); Z86.73 Personal history of transient ischemic attack (TIA), and cerebral infarction without residual deficits
CPT/HCPCS: 93306; 93880

== ENCOUNTER 2018-05-08 12:27 | Emergency (ER) | payer MEDICARE, OTHER, SELFPAY ==
[2018-01-08 13:24] VITALS: BMI 22.9
[2018-05-08 12:27] VITALS: BP 164/136; PULSE 75; RESP 20; TEMP 35.9; O2SAT 96; BMI 19.9
[2018-05-08 12:35] VITALS: BP 174/123; PULSE 91; RESP 16; O2SAT 97
--- NOTE | 2018-05-08 12:54 | CT_ITS ---
STUDY: CT BRAIN WITHOUT CONTRAST REASON FOR EXAM: Male, 77 years old. Injury to the posterior aspect of the skull due to a fall. RADIATION DOSAGE (If Supplied By Facility): CTDIvol = ( 60.81 ) mGy, DLP = ( 1044.28 ) mGycm TECHNIQUE: Transaxial CT imaging of the brain was performed without administration of intravenous contrast material. Individualized dose optimization techniques were used for this CT. COMPARISON: Comparison is made with prior study of March 13, 2017. FINDINGS: Normal soft tissue structures. Normal calvarium. There is mild cerebral atrophy with widening of the extra-axial spaces and ventricular dilatation. There are areas of decreased attenuation within the white matter tracts of the supratentorial brain, consistent with microvascular disease changes. There is evidence of encephalomalacia in the left temporal parietal occipital lobes. There was evidence of prior hematoma at that site on prior examination. Small lacunar infarcts in the basal ganglia bilaterally as well as within the thalamus. Normal brainstem. Normal cerebellum. There is no intracranial hemorrhage. There are no findings of an acute ischemic infarction. Atherosclerotic calcification of the vertebral arteries and cavernous portions of the internal carotid arteries bilaterally. Normal visualized paranasal sinuses. CT/Brain/Head without Contrast IMPRESSION: Chronic involutional changes of the brain. Encephalomalacia involving the left temporoparietal occipital lobes. Electronically Signed: Nikita Davis, at 13:32 EDT , Service support ,
--- NOTE | 2018-05-08 12:54 | CT_ITS ---
STUDY: CT CERVICAL SPINE WITHOUT CONTRAST REASON FOR EXAM: Male, 77 years old. History of injury due to fall. RADIATION DOSAGE (If Supplied By Facility): CTDIvol = ( 25.82 ) mGy, DLP = ( 500.09 ) mGycm TECHNIQUE: High resolution transaxial imaging was performed without contrast material. Sagittal and coronal images were reconstructed. Individualized dose optimization techniques were used for this CT. COMPARISON: None FINDINGS: Normal craniovertebral junction. There are degenerative changes of the anterior atlantoaxial articulation. Normal odontoid process. Normal cervical lordosis. Normal vertebral bodies and posterior osseous elements. C2-3: Mild degree of disc space narrowing. Minimal anterior listhesis of C2 on C3 most likely secondary to the facet joint osteoarthritis. C3-4: Marked degree of disc space narrowing and spondylosis. Facet joint osteoarthritis and hypertrophy with bilateral neural foraminal stenosis. This is worse on the right side. Uncovertebral arthrosis. C4-5: Marked degree of disc space narrowing. Spondylosis. Uncovertebral arthrosis with bilateral neural foraminal stenosis worse on the left side. C5-6: Marked degree of disc space narrowing. Spondylosis. Uncovertebral arthrosis. Facet joint osteoarthritis and bilateral neural foraminal stenosis. C6-7: Marked degree of the disc space narrowing with spondylosis. Uncovertebral arthrosis and facet joint osteoarthritis. Bilateral neural foraminal stenosis. Atherosclerotic calcification of the carotid bulbs bilaterally. CT/Spine Cervical without Contras IMPRESSION: Multilevel degenerative changes, as described above. Electronically Signed: Nikita Davis, at 13:31 EDT , Service support ,
--- NOTE | 2018-05-08 12:55 | ED.VIS.GEN ---
History of Present Illness Chief Complaint: Fall Informant: Patient, Family Limited by: Dementia Onset: Today - JPTA Context: Sudden Onset Narrative: Patient was standing in the kitchen at home, in the presence of his daughter who witnessed this, opening up a can of cocaine as he did, he lost his balance, flying backwards hitting the back of his head on a laminate-surfaced to floor. Family thinks he was relatively unresponsive for several minutes, but his mental status is similar to baseline now. He has some dementia. He had a stroke that gave him weakness on the right side, but he usually walks fairly well. Daughter states he does have some balance issues since his stroke. As a result of his stroke and other medical issues he is currently on Eliquis. 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 (2) Aortic valve stenosis Status: Chronic (3) Atrial fibrillation Status: Chronic (4) Cardiomyopathy Status: Chronic (5) Diabetes mellitus type 2 in nonobese Status: Chronic (6) Essential (primary) hypertension Status: Chronic (7) Hypothyroidism Status: Chronic (8) Non-rheumatic tricuspid valve insufficiency Status: Chronic (9) Nonrheumatic mitral valve insufficiency Status: Chronic (10) Pure hypercholesterolemia Status: Chronic (11) Abdominal aortic aneurysm Status: Resolved Comment: repair Past Medical History - Allergies and Home Meds Allergies/Adverse Reactions: Allergies No Known Allergies Allergy (Verified 05/08/18 12:50) Primary Care Physician: Dank Solares MD [Primary Care Provider] - Surgical History: total knee arthroplasty - Bilateral, - - Abdominal aortic aneurysm repair, bilateral knee replacements Lives: With Family Smoking Status: Never smoker - Family History Maternal Family History: Family History (Last Reviewed 06/04/17 @ 15:21 by Kristina Martini) Mother CAD (coronary artery disease) Diabetes Hypertension Family History: Reports: Stroke Paternal Family History: Family History (Last Reviewed 06/04/17 @ 15:21 by Kristina Martini) Mother CAD (coronary artery disease) Diabetes Hypertension Family History: Reports: Stroke Review of Systems ROS: Unable to Obtain - due to dementia. currently denies headache or pain Musculoskeletal: Denies: Extremity Pain Skin: Denies: Abrasions, Wounds Neurological: Denies: Headache Physical Exam Vital Signs/Narrative: Vital Signs Temp Pulse Resp BP Pulse Ox 05/08/18 12:35 91 16 174/123 H 97 05/08/18 12:27 96.6 F L 75 20 H 164/136 H 96 Inital Vital Signs reviewed: Yes General: Well nourished, Well developed, No Acute Distress Head: Normocephalic, Atraumatic. Negative for: Tenderness - and no hematoma Eyes: Perrl, EOMI ENT: Moist mucous membranes, No rhinorrhea, TM's clear - no HT or otorrhea. Negative for: Nasal congestion, Sinus tenderness - or nasal tenderness/epistaxis Neck: Nontender - throughout midline. no step off. c-collar maintained from EMS. Cardiovascular: No murmurs, Irregular Respiratory: No distress, CTA bilaterally, Chest nontender Abdomen: Soft, Nontender, Nondistended, Normal bowel sounds Back: Nontender, Normal Inspection. Negative for: Spinal tenderness Extremities: Nontender, No edema Skin: Normal color, No rash, No Trauma Neurological: Alert, Cranial nerves II-XII grossly intact, Normal Strength, Normal Sensation, Disoriented - person, place, time, - - able to sit up w/ little assistance. GCS 14 (similar to pt's baseline) Psychological: Normal affect, Normal Mood Diagnostic/Tx/Re-eval Impressions Brain CT 05/08/18 12:54 IMPRESSION: Chronic involutional changes of the brain. Encephalomalacia involving the left temporoparietal occipital lobes. Electronically Signed: Nikita Davis, at 13:32 EDT , Service support , Cervical Spine CT 05/08/18 12:54 IMPRESSION: Multilevel degenerative changes, as described above. Electronically Signed: Nikita Davis, at 13:31 EDT , Service support , 05/08/18 12:54 Brain/Head without Contrast [CT] Stat CT Cervical [Spine Cervical without Contras] [CT] Stat - Medical Decision Making As above, CT scan showed no acute traumatic abnormality. I was able to clinically clear his C-spine without any apparent difficulty. He is at his baseline mental state according to family. He developed no acute neurologic symptoms or vomiting or headache on my reevaluation, he was monitored for 3 hours total in the ED. On reevaluation he is ambulatory without apparent difficulty although his shoes are a bit clunky which we discussed with him and family. We discussed the chances of delayed hemorrhage since he is on a blood thinner, although it is a very low chance. I advise close outpatient follow-up. We discussed reasons to return to the ED. They are comfortable with discharge home and watching for signs of concussion. ED Disposition - Plan for ED Patient: Disposition: Home or Assisted Living Diagnosis: Closed head injury with brief loss of consciousness, Loss of balance Instructions: ED Head Injury Closed Referrals: Dank Solares MD [Primary Care Provider] - 3-5 Days
[2018-05-08 14:36] VITALS: BP 154/114; PULSE 73
[2018-05-08 15:01] VITALS: BP 146/89; PULSE 73; RESP 16; O2SAT 97
--- NOTE | 2018-05-08 15:28 | ED.RN ---
PT AMBULATED WELL WITH RN AND AIRCRAFT TIME CLERK. SPOKE WITH PT AND FAMILY ABOUT WEARING DIFFERENT SHOES. THIS RN FEELS THAT THE SHOES THE PT HAS ON ARE TOO LOOSE AND BULKY. FAMILY STATES THAT HE HAS DIFFERENT SHOES AND VERBUALIZES UNDERSTANDING OF RN SUGGESTION.
[2018-05-08 15:58] VITALS: BP 146/89; PULSE 74; RESP 16; O2SAT 96
== END 2018-05-08 15:58 | disposition home or self-care (01) ==
PROVIDERS: Emergency Provider Emergency Medicine; Family Provider Family Medicine; PCP Family Medicine
DX: S06.9X1A Unspecified intracranial injury with loss of consciousness of 30 minutes or less, initial encounter (principal); W18.00XA Striking against unspecified object with subsequent fall, initial encounter; Y93.9 Activity, unspecified; Y92.000 Kitchen of unspecified non-institutional (private) residence as the place of occurrence of the external cause; Y99.9 Unspecified external cause status; F03.90 Unspecified dementia, unspecified severity, without behavioral disturbance, psychotic disturbance, mood disturbance, and anxiety; R26.89 Other abnormalities of gait and mobility; I69.351 Hemiplegia and hemiparesis following cerebral infarction affecting right dominant side; I48.2 Chronic atrial fibrillation; I36.1 Nonrheumatic tricuspid (valve) insufficiency; I34.0 Nonrheumatic mitral (valve) insufficiency; I35.0 Nonrheumatic aortic (valve) stenosis; E11.9 Type 2 diabetes mellitus without complications; I10 Essential (primary) hypertension; E78.00 Pure hypercholesterolemia, unspecified; E03.9 Hypothyroidism, unspecified; I42.9 Cardiomyopathy, unspecified; Z79.01 Long term (current) use of anticoagulants; Z79.84 Long term (current) use of oral hypoglycemic drugs; Z79.899 Other long term (current) drug therapy; Z96.653 Presence of artificial knee joint, bilateral
CPT/HCPCS: 70450; 72125; 99284; A4216

== ENCOUNTER → 2018-05-20 12:44 | Outpatient (CLI) | payer MEDICARE, OTHER, SELFPAY ==
[2018-05-08 12:27] VITALS: BMI 19.9
[2018-05-20 14:22] LABS: ALB/GLOB Ratio 0.8 RATIO (0.9-2.4); AST(SGOT) 21 U/L (15-37); Alanine Aminotransfer ALT/SGPT 24 U/L (16-61); Albumin, Serum 3.2 g/dL (3.2-5.0); Alkaline Phosphatase 184 U/L (45-117); Anion Gap 6 (5-15); BUN 16 mg/dL (7-18); BUN/Creat Ratio 16.8 RATIO (10-20); Calcium,Total 8.5 mg/dL (8.5-10.1); Chloride 104 mmol/L (98-107); Creatinine, Serum 0.95 mg/dL (0.70-1.30); EST Glomerular Filtration Rate 82 mL/min (>60); Est Glom Filt Rate - Afr Amer 99 mL/min (>60); Globulin 4.2 g/dL (2.2-4.2); Glucose 86 mg/dL (74-106); Potassium 4.2 mmol/L (3.5-5.1); Protein, Total 7.4 g/dL (6.4-8.2); Sodium Level 141 mmol/L (136-145)
== END ==
PROVIDERS: Family Provider Family Medicine; PCP Family Medicine; Referring Provider Internal Medicine Interventional Cardiology; Visit Provider Internal Medicine Interventional Cardiology
DX: I10 Essential (primary) hypertension (principal); E11.9 Type 2 diabetes mellitus without complications; R63.4 Abnormal weight loss
CPT/HCPCS: 36415; 80053

== ENCOUNTER 2018-05-23 09:47 | Inpatient (IN) | payer MEDICARE, OTHER, SELFPAY ==
[2018-05-23] VITALS (9 sets, daily range): BP systolic 117–176; BP diastolic 91–133; PULSE 57–95; RESP 15–20; TEMP 36.3–36.8; O2SAT 97–100; BMI 20.4; BMI 19.3
--- NOTE | 2018-05-23 10:02 | EKG12_ITS ---
Test Reason : FALL Blood Pressure : / mmHG Vent. Rate : 066 BPM Atrial Rate : 067 BPM P-R Int : 000 ms QRS Dur : 092 ms QT Int : 376 ms P-R-T Axes : 000 040 092 degrees QTc Int : 394 ms Atrial fibrillation Nonspecific ST and T wave abnormality Abnormal ECG Confirmed by GIOVANNI TELLES, ISHA ([id number]), supervising editor trailer BRIAN CASTORENA ([id number]) on 05/27/2018 10:22:40 AM Referred By: Jaycob Husain Confirmed By:ISHA DAVILA MD
--- NOTE | 2018-05-23 10:03 | CT_ITS ---
STUDY: CT BRAIN WITHOUT CONTRAST REASON FOR EXAM: Male, 77 years old. History of fall. Facial contusions. RADIATION DOSAGE (If Supplied By Facility): CTDIvol = ( 44.99 ) mGy, DLP = ( 812.98 ) mGycm TECHNIQUE: Transaxial CT imaging of the brain was performed without administration of intravenous contrast material. Individualized dose optimization techniques were used for this CT. COMPARISON: Comparison is made with prior study dated May 08, 2018. FINDINGS: Normal soft tissue structures. Normal calvarium. There is mild cerebral atrophy with widening of the extra-axial spaces and ventricular dilatation. There are areas of decreased attenuation within the white matter tracts of the supratentorial brain, consistent with microvascular disease changes. Stable encephalomalacia involving the left temporoparietal occipital lobes and compared with prior CVA. Stable small lacunar infarcts in the basal ganglia bilaterally. Normal brainstem. Normal cerebellum. There is no intracranial hemorrhage. There are no findings of an acute ischemic infarction. Normal visualized paranasal sinuses. CT/Brain/Head without Contrast IMPRESSION: Chronic involutional changes of the brain. Stable encephalomalacia involving the left temporoparietal occipital lobes. Electronically Signed: Nikita Davis, at 11:24 EDT , Service support ,
--- NOTE | 2018-05-23 10:06 | ED.DCSUM_ITS ---
- ER Visit Summary Date of Service: 05/23/18 Chief Complaint: [] Frequent falling head injury History of Present Illness: The patient is a 77 M [] history is provided by paramedics were called to the home today because the patient apparently fell hit his head, it is thought that the called EMS, he was brought in C-collared and backboarded, he really is unable to provide history, he knows his name he knows was to Yousif he has no severe complaints, he has a contusion over the right upper brow he denies any complaints moving all 4 extremities Paramedics informed the staff that the patient has had frequent falling there is some attempt to arrange for him to have a different type of living environment as an outpatient but that attempt is unknown status, and because of the fall and the frequent falls he was brought to the emergency department Physical Examination: [] His vitals are within normal range General, no distress resting comfortably HEENT is generally unremarkable, he has a contusion possibly a mild laceration is well approximated over the right upper brow he is eyes open spontaneously he answers questions he is slightly slow to respond, but he knew his name David Dodd was moving all 4 extremities to commands he had no specific neck discomfort The neck is supple no adenopathy Cardiovascular, iregular rate and rhythm A. fib on the monitor rate about 70 Lungs, clear bilateral Abdomen, soft nontender Extremities, no clubbing cyanosis or edema moving all 4 extremities scattered contusions Neurologic, awake alert answering questions appropriately moving all 4 extremities confused slow to respond as above cannot provide any history unclear what his baseline is Test Results: [] Emergency Department Course and Treatment: [] All the above screening labs are obtained head CT there is no family or others available to interview The patient screening labs head CT next CT are generally unremarkable he does have leukomalacia suggestive of prior stroke, his EKG shows a fibrillation rate 70, the is here now confirms the above he states he simply been too weak and falling quite a bit she is been trying to get both of them into a different type of living arrangement such as assisted living she understands that she cannot care for him at home and she agrees to have him admitted for further management long term placement Treatment Plan: [] Disposition: [] Admit stable Impression: [] Neurolysed weakness, frequent falls, A. fib, Eliquis therapy, history of prior stroke This note was generated with Dragon dictation software. It may contain incorrect words, spelling, and punctuation that were not noted in review of the chart prior to signing ED Disposition - Plan for ED Patient: Referrals: Dank Solares MD [Primary Care Provider] -
--- NOTE | 2018-05-23 10:06 | CT_ITS ---
STUDY: CT CERVICAL SPINE WITHOUT CONTRAST REASON FOR EXAM: Male, 77 years old. Fall. Facial contusions. RADIATION DOSAGE (If Supplied By Facility): CTDIvol = ( 15.03 ) mGy, DLP = ( 254.44 ) mGycm TECHNIQUE: High resolution transaxial imaging was performed without contrast material. Sagittal and coronal images were reconstructed. Individualized dose optimization techniques were used for this CT. COMPARISON: Comparison is made with prior study dated May 08, 2018. FINDINGS: Normal craniovertebral junction. There are degenerative changes of the anterior atlantoaxial articulation. Normal odontoid process. Normal cervical lordosis. Normal vertebral bodies and posterior osseous elements. C2-3: Mild degree of disc space narrowing. No significant stenosis is seen. C3-4: Facet joint osteoarthritis and hypertrophy with bilateral neural foraminal stenosis. This is worse on the right side. Uncovertebral arthrosis. Marked degree of disc space narrowing. C4-5: Marked degree of disc space narrowing. Spondylosis. Uncovertebral arthrosis with bilateral neural foraminal stenosis worse on the left side. C5-6: Marked degree of disc space narrowing with spondylosis. Uncovertebral arthrosis. Facet joint osteoarthritis and hypertrophy. Bilateral neural foraminal stenosis. C6-7: Marked degree of disc space narrowing with spondylosis. Facet joint osteoarthritis. Bilateral neural foraminal stenosis. Atherosclerotic calcification of the carotid arteries bilaterally. CT/Spine Cervical without Contras IMPRESSION: Multilevel degenerative changes, as described above. Electronically Signed: Nikita Davis, at 11:28 EDT , Service support ,
--- NOTE | 2018-05-23 10:15 | RAD_ITS ---
STUDY: X-RAY CHEST REASON FOR EXAM: Male, 77 years old. Chest pain. TECHNIQUE: Single AP portable view of the chest. COMPARISON: Comparison is made with prior study dated March 12, 2017. FINDINGS: EKG electrodes are seen. There is elevation of the left hemidiaphragm with bowel loops in the left lower hemithorax. This is unchanged. There is no demonstrated pleural abnormality. There is moderate cardiac enlargement. Normal mediastinum and wes. Normal visualized pulmonary arteries. There is atherosclerotic calcification of the aortic arch with tortuosity. There are diffuse degenerative changes of the visualized thoracic spine. Dextroscoliosis. There is degenerative osteoarthritis of the bilateral shoulders. Healing right rib fractures. Large hiatal hernia. RAD/Chest 1 View (Portable) IMPRESSION: Cardiomegaly. Large hiatal hernia. Stable findings in the lungs. Electronically Signed: Nikita Davis, at 10:28 EDT , Service support ,
[2018-05-23 10:18] LABS: Absolute Lymphocyte Count 0.84 X10^3/ul (0.83-4.51); Absolute Neutrophil Count 5.9 X10^3/uL (2.0-7.7); Basophil# 0.03 X10^3/uL; Basophil% 0.4 % (0-1); Eosinophil# 0.16 X10^3/uL; Eosinophils% 2.1 % (0-5); Hematocrit 35.7 % (40-54); Hemoglobin 11.3 g/dl (13.0-16.5); Lymphocyte # 0.84 X10^3/ul (4.0); Lymphocyte % 11.1 % (19-41); Mean Corp Hgb Conc 31.7 g/gl (32-36); Mean Corpuscular Hgb 27.4 pg (27.0-32.0); Mean Corpuscular Volume 86.7 fL (80-94); Monocyte# 0.58 X10^3/uL; Monocyte% 7.7 % (0-10); Platelet Count 227 K/mm3 (150-450); RBC Distribution Width CV 18.7 % (11.6-14.6); RBC Distribution Width SD 59.2 fl (35.1-43.9); Red Blood Count 4.12 M/mm3 (4.6-6.2); White Blood Count 7.6 K/mm3 (4.4-11.0)
[2018-05-23 10:20] LABS: POSITIVE COUNT NO; POSITIVE DIFFERENTIAL NO; POSITIVE MORPHOLOGY NO
[2018-05-23 10:29] LABS: International Normalized Ratio 1.2; Prothrombin Time (Protime)PT. 14.8 SECONDS (11.7-14.9)
[2018-05-23 10:35] LABS: Anion Gap 5 (5-15); BUN 24 mg/dL (7-18); BUN/Creat Ratio 19.4 RATIO (10-20); Calcium,Total 8.3 mg/dL (8.5-10.1); Chloride 108 mmol/L (98-107); Creatinine, Serum 1.24 mg/dL (0.70-1.30); EST Glomerular Filtration Rate 60 mL/min (>60); Est Glom Filt Rate - Afr Amer 73 mL/min (>60); Estimated Creatinine Clearance 43.73 ml/min; Glucose 87 mg/dL (74-106); Potassium 3.8 mmol/L (3.5-5.1); Sodium Level 144 mmol/L (136-145)
[2018-05-23 10:47] LABS: BNP,B-Type NATRIURETIC PEPTIDE 285.9 pg/mL (0-100)
[2018-05-23] MEDS: 0.9% Normal Saline 1,000 ML 150 ML IV (10:58)
--- NOTE | 2018-05-23 13:11 | CASEMGMT ---
RN CM Assessment Introduced role of RN CM to patient Kinsey and Dtr at bedside.? Patient is alert, oriented and able?to participate in RN CM Assessment. ?Care providers, pharmacy, and demographics verified. Presentation: Fell, Hit Head. H/o Frequent Falls Admit Dx: Re-Admit: No, ER 05/08/18 for Fall Barriers/Issues: SW to follow, as ok with patient to discuss SNF, [facility] plans to sell her home and move into [facility], [facility] has not looked at any as of now but was considering [facility] as it is located in [place] where both their daughters reside. [address] Other Dtr is a MACHINE REPAIR PERSON and has been coming over daily to assist with bathing. Per after patient had a stroke he just wants to , states unable to do things he previously did prior to stroke, denies ever having a psych eval for depression and open to this, [facility] patient has lost a large amount of weight recently. PCP: Dank Solares Specialists: Cardio- dr Haynes, Cardio in [place]- Dr Vargas, Neuro in [facility]- Dr Travis, Thyroid Radiation in [place] Preferred Pharmacy: [facility] Insurance: [facility] A[facility], [facility] Benefit:?Yes LNOK: Kinsey Bailon LW/HPOA: Yes-LW and per she is the HPOA Living Arrangements:? Lives with in a [place] Home, 8 steps to enter, 10 steps to basement where the do the laundry and have to let the dogs out. ADL?s: Independent with ambulation and ADL's except requires assistance with bathing. Transportation: Family DME: Shower Chair with grab bars, Walker-patient does not use. HHC: Past after stroke with [facility] SNF: [facility]-past Goal: Home, states patient will not allow HH. Plan for family to assist but looking into SNF. DC PLAN: Home with no anticipated needs identified at this time. FELICITAS Gu
--- NOTE | 2018-05-23 13:43 | CASEMGMT ---
RN CM Assessment Introduced role of RN CM to patient Kinsey and Dtr at bedside.? Patient is sleeping during assessment, therefore unable?to participate in RN CM Assessment. ?Information obtained from Kinsey. Care providers, pharmacy, and demographics verified. Presentation: Fell, Hit Head. H/o Frequent Falls Re-Admit: No, ER 05/08/18 for Fall Barriers/Issues: SW to follow, as ok with patient to discuss [facility], [facility] plans to sell her home and move into [facility], [facility] has not looked at any as of now but was considering [facility] as it is located in [place] where both their daughters reside. [address] Other Dtr is a COMPUTER OPERATIONS TECHNICIAN and has been coming over daily to assist with bathing. Per after patient had a stroke he just wants to , states unable to do things he previously did prior to stroke, denies ever having a psych eval for depression and open to this, states patient has lost a large amount of weight recently. This CM did provide with a Generalized Resource Pamphlet and did discuss looking into applying for [employer] as if patient qualifies, could receive passport services and/or help in the future if ever needing Intermediate Placement. PCP: Dank Solares Specialists: Cardio- dr Haynes, Cardio in [place]- Dr Vargas, Neuro in [facility]- Dr Travis, Thyroid Radiation in [place] Preferred Pharmacy: [facility] Insurance: [facility] A[facility], [facility] Benefit:?Yes LNOK: Kinsey Bailon LW/HPOA: Yes-LW and per she is the HPOA Living Arrangements:? Lives with in a [place] [facility], 8 steps to enter, 10 steps to basement where the do the laundry and have to let the dogs out. ADL?s: Independent with ambulation and ADL's except requires assistance with bathing. Transportation: Family DME: Shower Chair with grab bars, Walker-patient does not use. HHC: Past after stroke with [facility] SNF: [facility]-past Goal: Home, states patient will not allow HH. Plan for family to assist but looking into [facility]. DC PLAN: Home with no anticipated needs identified at this time. Idris Hopkins RNCM
--- NOTE | 2018-05-23 16:27 | HP.PCM_ITS ---
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 They were aware that he has been falling more and more frequently and outpatient plans were for him to get moved to a higher level of care, however that has not happened yet. He has a bruise over his eye, however CT brain was negative. He currently has no pain. He is A/O to self only at this time. Hx primarily obtained through medical records at this time. He was also here earlier this month with falls and sent home at that time. It is unsafe for him to return home as he is falling with increased frequency. [] Past Medical History Past Medical History (Chronic Problems): Chronic Problems (Last Updated 12/04/17 @ 08:33 by JAZZMINE Quan) Pure hypercholesterolemia (Chronic) Essential (primary) hypertension (Chronic) Non-rheumatic tricuspid valve insufficiency (Chronic) Nonrheumatic mitral valve insufficiency (Chronic) Atrial fibrillation (Chronic) Cardiomyopathy (Chronic) Aortic valve stenosis (Chronic) Hypothyroidism (Chronic) Diabetes mellitus type 2 in nonobese (Chronic) Acute thromboembolic cerebrovascular accident (CVA) (Chronic) Medical History: Medical History (Last Updated 12/04/17 @ 08:33 by JAZZMINE Quan) Pure hypercholesterolemia (Chronic) E78.00 Essential (primary) hypertension (Chronic) I10 Non-rheumatic tricuspid valve insufficiency (Chronic) I36.1 Nonrheumatic mitral valve insufficiency (Chronic) I34.0 Abnormal cardiovascular function study (Acute) R94.30 Intracranial hemorrhage (Acute) I62.9 Atrial fibrillation (Chronic) I48.91 Cardiomyopathy (Chronic) I42.9 Aneurysm, abdominal aortic, with rupture (Resolved) I71.3 Aortic valve stenosis (Chronic) I35.0 Hypothyroidism (Chronic) E03.9 Diabetes mellitus type 2 in nonobese (Chronic) E11.9 Received intravenous tissue plasminogen activator (tPA) in emergency department (Acute) Z92.82 Acute thromboembolic cerebrovascular accident (CVA) (Chronic) I63.9 Expressive aphasia (Acute) R47.01 Left arm weakness (Ruled-out) R29.898 Dyspnea on exertion R06.09 Allergies No Known Allergies Allergy (Verified 05/08/18 12:50) Home Medications: Ambulatory Orders Medication Instructions Recorded atorvastatin 40 mg tablet 40 mg PO QDAY 06/04/17 digoxin 125 mcg tablet 125 mcg PO QDAY 06/04/17 levothyroxine 100 mcg tablet 100 mcg PO QDAY 06/04/17 metformin 500 mg tablet 500 mg PO BID 06/04/17 metoprolol succinate ER 100 mg 50 mg PO QDAY 06/04/17 tablet,extended release 24 hr apixaban 2.5 mg tablet 2.5 mg PO BID 12/04/17 Acetaminophen [Tylenol] 650 mg PO Q6H PRN 05/23/18 Lisinopril [Zestril] 10 mg PO DAILY 05/23/18 Venlafaxine HCl [Effexor Xr] 75 mg PO DAILY 05/23/18 Surgical History: Surgical History (Last Reviewed 06/04/17 @ 15:20 by Kristina Martini) Abdominal aortic aneurysm (Resolved) I71.4 repair hammer toe repair (Resolved) H/O: knee surgery (Resolved) Z98.890 bilateral H/O hernia repair (Resolved) Z98.890, Z87.19 abdominal repair Surgical History: total knee arthroplasty - Bilateral, - - Abdominal aortic aneurysm repair, bilateral knee replacements Psychiatric History: No pertinent psych hx Lives: Alone Smoking Status: Unknown if ever smoked Tobacco Use: Non-smoker Alcohol: None Drugs: None - *Family History Maternal Family History: Family History (Last Reviewed 06/04/17 @ 15:21 by Kristina Martini) Mother CAD (coronary artery disease) Diabetes Hypertension History Items: Stroke Paternal Family History: Family History (Last Reviewed 06/04/17 @ 15:21 by Kristina Martini) Mother CAD (coronary artery disease) Diabetes Hypertension History Items: Stroke Review of Systems Unable to obtain accurate/complete ROS d/t: Pt A/O x 1 VTE Information - Inpt Only VTE Present on Admission: No VTE Mechan Device Prophylaxis: None VTE Pharm Prophylaxis ordered?: Yes Patient Problems: Active and Suspected Problems (Last Updated 12/04/17 @ 08:33 by Eduardo Bone CANE WEIGHER- C) Debility (Acute) - Physical Exam General: Alert, Cooperative, Confused, - - oriented x 1 HEENT: Atraumatic, PERRLA, EOMI, Normocephalic Neck: Supple, No JVD, Negative Carotid Bruits Lungs: Clear to auscultation, Normal air movement Cardiovascular: Regular rate, No murmurs Abdomen: Bowel Sounds Present, Soft, Non Tender Extremities: No edema, Capillary Refill Less than 3 Seconds Skin: No rashes, No breakdown Musculoskeletal: No Tenderness to Palpation of Joints or Extremities Neurological: Cranial nerves II-XII grossly intact Psych/Mental Status: Normal Affect, Appropriate Vital Signs Temp Pulse Resp BP Pulse Ox 97.3 F L 57 L 18 176/127 H 99 05/23/18 14:21 05/23/18 14:21 05/23/18 14:21 05/23/18 14:23 05/23/18 14:21 Oxygen Delivery Method Room Air Weight: 127 lb 6.835 oz Body Mass Index (BMI) 19.3 Finger Stick Blood Glucose 113 Laboratory Tests Past 24 Hrs 05/23/18 05/23/18 05/23/18 10:10 10:10 10:10 WBC 7.6 RBC 4.12 L Hgb 11.3 L Hct 35.7 L MCV 86.7 MCH 27.4 MCHC 31.7 L RDW 18.7 H RDW Differential 59.2 H Plt Count 227 MPV 9.0 Immature Gran % (Auto) 0.700 Neut % (Auto) 78.0 H Lymph % (Auto) 11.1 L [place] % (Auto) 7.7 Eos % (Auto) 2.1 Baso % (Auto) 0.4 Absolute Neuts (auto) 5.9 Absolute Lymphs (auto) 0.84 Total Counted Not Reportable PT 14.8 INR 1.2 Sodium 144 Potassium 3.8 Chloride 108 H Carbon Dioxide 31.0 Anion Gap 5 BUN 24 H Creatinine 1.24 Estim Creat Clear Calc 43.73 Est GFR (MDRD) Af Amer 73 Est GFR (MDRD) Non-Af 60 BUN/Creatinine Ratio 19.4 Glucose 87 Calcium 8.3 L Troponin I 0.021 B-Natriuretic Peptide 05/23/18 10:10 WBC RBC Hgb Hct MCV MCH MCHC RDW RDW Differential Plt Count MPV Immature Gran % (Auto) Neut % (Auto) Lymph % (Auto) [place] % (Auto) Eos % (Auto) Baso % (Auto) Absolute Neuts (auto) Absolute Lymphs (auto) Total Counted PT INR Sodium Potassium Chloride Carbon Dioxide Anion Gap BUN Creatinine Estim Creat Clear Calc Est GFR (MDRD) Af Amer Est GFR (MDRD) Non-Af BUN/Creatinine Ratio Glucose Calcium Troponin I B-Natriuretic Peptide 285.9 H Assessment/Plan All Active Problems (Last Updated 12/04/17 @ 08:33 by Eduardo Bone, JEB-C) Debility (Acute) Abnormal cardiovascular function study (Acute) Abdominal aortic aneurysm (Resolved) hammer toe repair (Resolved) H/O: knee surgery (Resolved) H/O hernia repair (Resolved) Intracranial hemorrhage (Acute) Aneurysm, abdominal aortic, with rupture (Resolved) Received intravenous tissue plasminogen activator (tPA) in emergency department (Acute) Expressive aphasia (Acute) Left arm weakness (Ruled-out) 1. Worsening debility with increasing mechanical falls at home-PT OT, placement. CT brain and CT c spine negative for acute changes. . 2. History of thromboembolic stroke and intracranial hemorrhage following TPA administration 03/2017 3. Atrial fibrillation-rate stable, on Eliquis, digoxin, metoprolol 4. History of cardiomyopathy 5. Hyperlipidemia-continue statin 6. Hypothyroidism-continue Synthroid 7. Type 2 diabetes-hold metformin, sliding scale insulin 8. Hypertension-elevated at time of admission, will trend. DVT prophylaxis: Patient on Eliquis Discharge planning: Patient needs halfway at discharge This patient was seen by Marco Salinas PA-C under the supervision of Doctor Husain.
[2018-05-23] MEDS: 0.9% Normal Saline 1,000 ML 75 ML IV (16:46)
[2018-05-23] MEDS: 0.9% NaCl Peripheral Flush Adult/Peds IV (16:46)
[2018-05-23] MEDS: Atorvastatin Calcium 40 MG Tablet PO (21:43)
[2018-05-23] MEDS: APIXABAN 2.5 MG TABLET PO (21:43)
[2018-05-23] MEDS: hydrALAZINE 20 MG/ML Vial 5 MG IV (22:27)
[2018-05-24 05:37] VITALS: BP 157/112; PULSE 75; RESP 18; TEMP 37.1; O2SAT 96
[2018-05-24] MEDS: Levothyroxine 100 MCG Tablet PO (05:44)
[2018-05-24] MEDS: 0.9% Normal Saline 1,000 ML 75 ML IV ×2 (05:44→17:57)
[2018-05-24 09:35] VITALS: BP 154/105; PULSE 87; RESP 14; TEMP 37.2; O2SAT 95
[2018-05-24 09:37] VITALS: PULSE 87
[2018-05-24] MEDS: Metoprolol(XL)Succ 50 MG Tablet PO (09:37)
[2018-05-24] MEDS: APIXABAN 2.5 MG TABLET PO ×2 (09:37→21:22)
[2018-05-24] MEDS: Venlafaxine XR 75 MG Capsule PO (09:37)
[2018-05-24] MEDS: Lisinopril 10 MG Tablet PO (09:37)
[2018-05-24] MEDS: Digoxin 125 MCG Tablet PO (09:37)
--- NOTE | 2018-05-24 12:33 | PCM.PROGNOTE ---
Patient Problems: Active and Suspected Problems (Last Updated 12/04/17 @ 08:33 by JAZZMINE Quan) Debility (Acute) Subjective: Patient resting comfortably in bed, supine, no acute distress. Easily awoken. He currently denies pain, headache, dizziness, nauseousness, difficulty eating, shortness of breath, cough. He is not answering questions appropriately. Several questions that I asked him he responded with answers that were completely unrelated to what I was asking him. Regardless, when asked if he would be willing to do shelter he says no I want to go home. - Physical Exam General: Alert, Cooperative, Confused HEENT: Atraumatic, PERRLA, EOMI, Normocephalic Neck: Supple, No JVD, Negative Carotid Bruits Lungs: Clear to auscultation, Normal air movement Cardiovascular: Regular rate, No murmurs Abdomen: Bowel Sounds Present, Soft, Non Tender Extremities: No edema, Capillary Refill Less than 3 Seconds Skin: No rashes, No breakdown Musculoskeletal: No Tenderness to Palpation of Joints or Extremities Neurological: Cranial nerves II-XII grossly intact Psych/Mental Status: Normal Affect, Appropriate Vital Signs Temp Pulse Resp BP Pulse Ox 98.9 F 87 14 154/105 H 95 05/24/18 09:35 05/24/18 09:37 05/24/18 09:35 05/24/18 09:35 05/24/18 09:35 Oxygen Delivery Method Room Air Weight: 127 lb 6.835 oz Body Mass Index (BMI) 19.3 Finger Stick Blood Glucose 113 Intake and Output for Last 24 Hours 05/22/18 05/23/18 05/24/18 23:59 23:59 23:59 Intake Total 484 / 484 458 / 458 Output Total 800 / 800 Balance -316 / -316 458 / 458 Medical Necessity - Tobacco Use Smoking Status: Unknown if ever smoked Tobacco Use: Non-smoker Assessment/Plan All Active Problems (Last Updated 12/04/17 @ 08:33 by JAZZMINE Quan) Debility (Acute) Abnormal cardiovascular function study (Acute) Abdominal aortic aneurysm (Resolved) hammer toe repair (Resolved) H/O: knee surgery (Resolved) H/O hernia repair (Resolved) Intracranial hemorrhage (Acute) Aneurysm, abdominal aortic, with rupture (Resolved) Received intravenous tissue plasminogen activator (tPA) in emergency department (Acute) Expressive aphasia (Acute) Left arm weakness (Ruled-out) 1. Worsening debility with increasing mechanical falls at home-PT OT, placement. CT brain and CT c spine negative for acute changes. 2. ?Dementia - very confused, albeit pleasantly, a/ox1, does not answer questions appropriately. It is likely unsafe for him to be home alone. There does not appear to be an acute encephalopathic process occurring at this time. 3. History of thromboembolic stroke and intracranial hemorrhage following TPA administration 03/2017 4. Atrial fibrillation-rate stable, on Eliquis, digoxin, metoprolol 5. History of cardiomyopathy 6. Hyperlipidemia-continue statin 7. Hypothyroidism-continue Synthroid 8. Type 2 diabetes-hold metformin, sliding scale insulin 9. Hypertension-elevated at time of admission, will trend. DVT prophylaxis: Patient on Eliquis Discharge planning: home vs home care, apparently the family is reluctant to have him admitted somewhere. This patient was seen by Marco Salinas PA-C under the supervision of Doctor Husain.
--- NOTE | 2018-05-24 12:37 | PN_ITS ---
Patient Problems: Active and Suspected Problems (Last Updated 12/04/17 @ 08:33 by GIA Quan) Debility (Acute) Subjective: Patient resting comfortably in bed, supine, no acute distress. Easily awoken. He currently denies pain, headache, dizziness, nauseousness, difficulty eating, shortness of breath, cough. He is not answering questions appropriately. Several questions that I asked him he responded with answers that were completely unrelated to what I was asking him. Regardless, when asked if he would be willing to do longterm he says no I want to go home. - Physical Exam General: Alert, Cooperative, Confused HEENT: Atraumatic, PERRLA, EOMI, Normocephalic Neck: Supple, No JVD, Negative Carotid Bruits Lungs: Clear to auscultation, Normal air movement Cardiovascular: Regular rate, No murmurs Abdomen: Bowel Sounds Present, Soft, Non Tender Extremities: No edema, Capillary Refill Less than 3 Seconds Skin: No rashes, No breakdown Musculoskeletal: No Tenderness to Palpation of Joints or Extremities Neurological: Cranial nerves II-XII grossly intact Psych/Mental Status: Normal Affect, Appropriate Vital Signs Temp Pulse Resp BP Pulse Ox 98.9 F 87 14 154/105 H 95 05/24/18 09:35 05/24/18 09:37 05/24/18 09:35 05/24/18 09:35 05/24/18 09:35 Oxygen Delivery Method Room Air Weight: 127 lb 6.835 oz Body Mass Index (BMI) 19.3 Finger Stick Blood Glucose 113 Intake and Output for Last 24 Hours 05/22/18 05/23/18 05/24/18 23:59 23:59 23:59 Intake Total 484 / 484 458 / 458 Output Total 800 / 800 Balance -316 / -316 458 / 458 Medical Necessity - Tobacco Use Smoking Status: Unknown if ever smoked Tobacco Use: Non-smoker Assessment/Plan All Active Problems (Last Updated 12/04/17 @ 08:33 by JAZZMINE Quan) Debility (Acute) Abnormal cardiovascular function study (Acute) Abdominal aortic aneurysm (Resolved) hammer toe repair (Resolved) H/O: knee surgery (Resolved) H/O hernia repair (Resolved) Intracranial hemorrhage (Acute) Aneurysm, abdominal aortic, with rupture (Resolved) Received intravenous tissue plasminogen activator (tPA) in emergency department (Acute) Expressive aphasia (Acute) Left arm weakness (Ruled-out) 1. Worsening debility with increasing mechanical falls at home-PT OT, pl acement. CT brain and CT c spine negative for acute changes. 2. ?Dementia - very confused, albeit pleasantly, a/ox1, does not answer questions appropriately. It is likely unsafe for him to be home alone. There does not appear to be an acute encephalopathic process occurring at this time. 3. History of thromboembolic stroke and intracranial hemorrhage following TPA administration 03/2017 4. Atrial fibrillation-rate stable, on Eliquis, digoxin, metoprolol 5. History of cardiomyopathy 6. Hyperlipidemia-continue statin 7. Hypothyroidism-continue Synthroid 8. Type 2 diabetes-hold metformin, sliding scale insulin 9. Hypertension-elevated at time of admission, will trend. DVT prophylaxis: Patient on Eliquis Discharge planning: home vs home care, apparently the family is reluctant to have him admitted somewhere. This patient was seen by Marco Salinas PA-C under the supervision of Doctor Husain.
[2018-05-24 14:51] VITALS: BP 169/108; PULSE 88; RESP 16; TEMP 37.2; O2SAT 98
[2018-05-24] MEDS: Acetaminophen 325 MG Tablet 650 MG PO (15:01)
[2018-05-24 15:02] VITALS: PULSE 88
[2018-05-24] MEDS: hydrALAZINE 20 MG/ML Vial 5 MG IV (15:02)
[2018-05-24] MEDS: 0.9% NaCl Peripheral Flush Adult/Peds IV (15:02)
--- NOTE | 2018-05-24 16:30 | CASEMGMT ---
Social Work Note MCKENZIE received call from RN stating pt's is at [facility]. MCKENZIE met with pt, pt's Kinsey and daughter Sherine. Pt has dementia, unable to provided answers. Kinsey and Sherine states pt will need to go to SNF at discharge. MCKENZIE explained three midnight stay at [facility] and there has to be a medical reason to keep pt or it will be private pay for SNF. Kinsey states understanding, states that her first choice is [facility] and second choice is [facility]. MCKENZIE explained that with it being late in the day, admissions may be gone for the day but that this worker will try to get a hold of admissions to see about getting pt accepted to a facility. Kinsey states understanding. MCKENZIE placed a call to Funmilayo at [facility]. Funmilayo states she is able to accept pt and pt has been there before. MCKENZIE explained pt will be ready on Sunday. MCKENZIE faxed referral to [facility]. MCKENZIE updated Charge nurse that pt is able to discharge to [facility] Sunday. MCKENZIE placed a call to Kinsey and updated her that pt is able to discharge to [facility] Sunday. Kinsey states understanding. MCKENZIE completed [facility]escent [facility] in [facility]. Original is with Green sheet and given to Elvira ROJAS who is SW on Sunday to place on pt's chart tomorrow. Plan: Pt to discharge to [facility] Sunday Priya Hooper MAIL TECHNICIAN, PROPERTY INSPECTOR
[2018-05-24 20:09] VITALS: BP 101/74; PULSE 96; RESP 18; TEMP 36.9; O2SAT 97
[2018-05-24] MEDS: Atorvastatin Calcium 40 MG Tablet PO (21:22)
[2018-05-25] VITALS (8 sets, daily range): BP systolic 135–160; BP diastolic 80–94; PULSE 68–93; RESP 18–20; TEMP 36.6–37; O2SAT 96–98
[2018-05-25] MEDS: Levothyroxine 100 MCG Tablet PO (05:18)
[2018-05-25] MEDS: 0.9% Normal Saline 1,000 ML 75 ML IV ×2 (06:41→20:28)
--- NOTE | 2018-05-25 09:12 | CASEMGMT ---
Green sheet on patient's chart for discharge to [facility] on Sunday. Elvira ROJAS MSW
[2018-05-25] MEDS: Lisinopril 10 MG Tablet PO (09:29)
[2018-05-25] MEDS: Venlafaxine XR 75 MG Capsule PO (09:29)
[2018-05-25] MEDS: Metoprolol(XL)Succ 50 MG Tablet PO (09:29)
[2018-05-25] MEDS: APIXABAN 2.5 MG TABLET PO (09:29)
[2018-05-25] MEDS: Digoxin 125 MCG Tablet PO (09:30)
[2018-05-25 13:14] LABS: Hematocrit 36.4 % (40-54); Hemoglobin 11.8 g/dl (13.0-16.5)
--- NOTE | 2018-05-25 14:40 | PCM.PROGNOTE ---
Patient Problems: Active and Suspected Problems (Last Updated 12/04/17 @ 08:33 by JAZZMINE Quan) Debility (Acute) Subjective: Nursing reported a bowel movement with blood in it this afternoon, there was a moderate amount of blood on the seat and in the bowel, bright red. Pt has no complaints today and is resting comfortably in bed. He remains pleasantly confused. - Physical Exam General: Alert, Oriented x3, Cooperative HEENT: Atraumatic, PERRLA, EOMI, Normocephalic Neck: Supple, No JVD, Negative Carotid Bruits Lungs: Clear to auscultation, Normal air movement Cardiovascular: Regular rate, No murmurs Abdomen: Bowel Sounds Present, Soft, Non Tender Extremities: No edema, Capillary Refill Less than 3 Seconds Skin: No rashes, No breakdown Musculoskeletal: No Tenderness to Palpation of Joints or Extremities Neurological: Cranial nerves II-XII grossly intact Psych/Mental Status: Normal Affect, Appropriate Vital Signs Temp Pulse Resp BP Pulse Ox 98 F 71 20 H 160/80 H 98 05/25/18 09:00 05/25/18 09:30 05/25/18 09:00 05/25/18 09:30 05/25/18 09:00 Oxygen Delivery Method Room Air Weight: 127 lb 6.835 oz Body Mass Index (BMI) 19.3 Finger Stick Blood Glucose 113 Intake and Output for Last 24 Hours 05/23/18 05/24/18 05/25/18 23:59 23:59 23:59 Intake Total 484 / 484 1996 593 / 593 Output Total 800 / 800 Balance -316 / -316 1996 593 / 593 Laboratory Tests Past 24 Hrs 05/25/18 13:01 Hgb 11.8 L Hct 36.4 L Medical Necessity - Tobacco Use Smoking Status: Unknown if ever smoked Tobacco Use: Non-smoker Assessment/Plan All Active Problems (Last Updated 12/04/17 @ 08:33 by GIA QuanC) Debility (Acute) Abnormal cardiovascular function study (Acute) Abdominal aortic aneurysm (Resolved) hammer toe repair (Resolved) H/O: knee surgery (Resolved) H/O hernia repair (Resolved) Intracranial hemorrhage (Acute) Aneurysm, abdominal aortic, with rupture (Resolved) Received intravenous tissue plasminogen activator (tPA) in emergency department (Acute) Expressive aphasia (Acute) Left arm weakness (Ruled-out) 1. GI bleed-suspect lower-had an episode today of bright red blood in the toilet and on the toilet seat reported by nursing is moderate in quantity. After this occurred and H&H was obtained and actually showed an improvement. At this time will discontinue his Eliquis and recheck an H&H in the morning. Will discuss with his tomorrow if she would like more invasive workup at this time. 2. Worsening debility with increasing mechanical falls at home-PT OT, placement. CT brain and CT c spine negative for acute changes. 3. ?Dementia - very confused, albeit pleasantly, a/ox1, does not answer questions appropriately. It is likely unsafe for him to be home alone. There does not appear to be an acute encephalopathic process occurring at this time. 4. History of thromboembolic stroke and intracranial hemorrhage following TPA administration 03/2017 5. Atrial fibrillation-rate stable, digoxin, metoprolol. Eliquis stopped for #1 6. History of cardiomyopathy 7. Hyperlipidemia-continue statin 8. Hypothyroidism-continue Synthroid 9. Type 2 diabetes-hold metformin, sliding scale insulin 10. Hypertension-elevated at time of admission, will trend. DVT prophylaxis: Patient on Eliquis Discharge planning: SNF likely Sunday. Pending This patient was seen by Marco Salinas PA-C under the supervision of Doctor Husain.
[2018-05-25] MEDS: Atorvastatin Calcium 40 MG Tablet PO (22:32)
[2018-05-26 03:00] VITALS: BP 147/100; PULSE 80; RESP 18; TEMP 37.1; O2SAT 96
[2018-05-26] MEDS: Levothyroxine 100 MCG Tablet PO (05:49)
[2018-05-26 05:53] LABS: Hematocrit 30.7 % (40-54); Hemoglobin 9.8 g/dl (13.0-16.5)
[2018-05-26] MEDS: 0.9% Normal Saline 1,000 ML 75 ML IV (09:04)
[2018-05-26 09:05] VITALS: BP 140/88; PULSE 73; RESP 18; TEMP 36.6; O2SAT 99
[2018-05-26 09:45] VITALS: PULSE 84
[2018-05-26] MEDS: Venlafaxine XR 75 MG Capsule PO (09:46)
[2018-05-26 09:47] VITALS: PULSE 84
[2018-05-26] MEDS: Lisinopril 10 MG Tablet PO (09:47)
[2018-05-26] MEDS: Digoxin 125 MCG Tablet PO (09:47)
[2018-05-26] MEDS: Metoprolol(XL)Succ 50 MG Tablet PO (09:47)
--- NOTE | 2018-05-26 12:58 | PCM.PROGNOTE ---
Patient Problems: Active and Suspected Problems (Last Updated 12/04/17 @ 08:33 by JAZZMINE Quan) Debility (Acute) Subjective: Pt admits to another bloody BM this AM. Unclear what the quantity of it was. He denies LH/Dizziness/fatigue at this point. He is resting comfortably in chair in NAD with no complaints. - Physical Exam General: Alert, Cooperative, Confused HEENT: Atraumatic, PERRLA, EOMI, Normocephalic Neck: Supple, No JVD, Negative Carotid Bruits Lungs: Clear to auscultation, Normal air movement Cardiovascular: Regular rate, No murmurs Abdomen: Bowel Sounds Present, Soft, Non Tender Extremities: No edema, Capillary Refill Less than 3 Seconds Skin: No rashes, No breakdown Musculoskeletal: No Tenderness to Palpation of Joints or Extremities Neurological: Cranial nerves II-XII grossly intact Psych/Mental Status: Normal Affect, Appropriate Vital Signs Temp Pulse Resp BP Pulse Ox 97.8 F 84 18 140/88 H 99 05/26/18 09:05 05/26/18 09:47 05/26/18 09:05 05/26/18 09:05 05/26/18 09:05 Oxygen Delivery Method Room Air Weight: 127 lb 6.835 oz Body Mass Index (BMI) 19.3 Finger Stick Blood Glucose 113 Intake and Output for Last 24 Hours 05/24/18 05/25/18 05/26/18 23:59 23:59 23:59 Intake Total 1996 1788 / 1788 1600 / 1600 Balance 1996 1788 1788 1600 / 1600 Laboratory Tests Past 24 Hrs 05/25/18 05/26/18 13:01 05:23 Hgb 11.8 L 9.8 L Hct 36.4 L 30.7 L Medical Necessity - Tobacco Use Smoking Status: Unknown if ever smoked Tobacco Use: Non-smoker Assessment/Plan All Active Problems (Last Updated 12/04/17 @ 08:33 by JAZZMINE Quan) Debility (Acute) Abnormal cardiovascular function study (Acute) Abdominal aortic aneurysm (Resolved) hammer toe repair (Resolved) H/O: knee surgery (Resolved) H/O hernia repair (Resolved) Intracranial hemorrhage (Acute) Aneurysm, abdominal aortic, with rupture (Resolved) Received intravenous tissue plasminogen activator (tPA) in emergency department (Acute) Expressive aphasia (Acute) Left arm weakness (Ruled-out) 1. GI bleed-suspect lower-had an episode today of bright red blood in the toilet and on the toilet seat reported by nursing is moderate in quantity. -Eliquis discontinued yesterday -2nd episode this AM -Hgb decreased from 11.8 to 9.8. -Contact family to see how much workup they would like given his dementia and hx. 2. Worsening debility with increasing mechanical falls at home-PT OT, placement. CT brain and CT c spine negative for acute changes. 3. ?Dementia - very confused, albeit pleasantly, a/ox1, does not answer questions appropriately. It is likely unsafe for him to be home alone. There does not appear to be an acute encephalopathic process occurring at this time. 4. History of thromboembolic stroke and intracranial hemorrhage following TPA administration 03/2017 5. Atrial fibrillation-rate stable, digoxin, metoprolol. Eliquis stopped for #1 6. History of cardiomyopathy 7. Hyperlipidemia-continue statin 8. Hypothyroidism-continue Synthroid 9. Type 2 diabetes-hold metformin, sliding scale insulin 10. Hypertension-elevated at time of admission, will trend. DVT prophylaxis: SCDs Discharge planning: SNF when ready This patient was seen by Marco Salinas PA-C under the supervision of Doctor Husain.
[2018-05-26 14:39] VITALS: BP 128/84; PULSE 78; RESP 18; TEMP 37.4; O2SAT 96
--- NOTE | 2018-05-26 19:11 | PCM.TXEXTCAR ---
- Diet 05/26/18 17:26 Diet: REGULAR - Routine Orders/Code Status Code Status: DNRCC - Wound(s) above right eye area from fall Wound Type: Abrasion skin tear right forearm irregular in shape/scabbed Wound Type: Skin Tear - Therapies Weight Bearing: Weight bearing as tolerated Physical Therapy: Eval and Treat Occupational Therapy: Eval and Treat - Problem/Diagnosis (1) Alzheimer's dementia Status: Chronic Current Visit: Yes (2) Debility Status: Acute Current Visit: Yes (3) Essential (primary) hypertension Status: Chronic Current Visit: No (4) Atrial fibrillation Status: Chronic Current Visit: No (5) Cardiomyopathy Status: Chronic Current Visit: No (6) Hypothyroidism Status: Chronic Current Visit: No (7) Diabetes mellitus type 2 in nonobese Status: Chronic Current Visit: No (8) Rectal bleeding Status: Acute Comment: PATIENT REFUSED WORK UP, DOESNT WANT PATIENT TO UNDERGO TESTING Current Visit: Yes - Allergies/Procedures Done in Hospital Allergies/Adverse Reactions: Allergies No Known Allergies Allergy (Verified 05/08/18 12:50) Procedures: None - Type of Care/Length of Stay Estimated LOS: Convalescent Care Less Than 30 days Type of Care Needed: Skilled Rehab Potential: Fair Prognosis: Fair - Additional Orders/Day of Discharge H&P will serve as current which was dated: 05/23/18 Day of Discharge: 05/26/18 - Follow Up Care Primary Care Physician: Dank Solares MD [Primary Care Provider] -
[2018-05-26 19:53] VITALS: BP 143/97; PULSE 96; RESP 22; TEMP 37.1; O2SAT 97
--- NOTE | 2018-05-27 17:49 | PCM.DC.SUM ---
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 #2 blood loss [id number] to rectal bleeding from unknown etiology #3 rectal bleeding-etiology unknown #4 atrial fibrillation-chronic #5 cerebrovascular disease #6 type 2 diabetes-under control with diet #7 hypertension - Secondary Discharge Diagnosis Chronic Problems (Last Updated 12/04/17 @ 08:33 by GIA QuanC) Alzheimer's dementia (Chronic) Pure hypercholesterolemia (Chronic) Essential (primary) hypertension (Chronic) Non-rheumatic tricuspid valve insufficiency (Chronic) Nonrheumatic mitral valve insufficiency (Chronic) Atrial fibrillation (Chronic) Cardiomyopathy (Chronic) Aortic valve stenosis (Chronic) Hypothyroidism (Chronic) Diabetes mellitus type 2 in nonobese (Chronic) Acute thromboembolic cerebrovascular accident (CVA) (Chronic) Hospital Course and Treatment Operations: None Procedures: None Summary of Care Provided: The patient is a 77 year old M was seen in the emergency room at [facility] after being brought in by his due to frequent falls at home and generalized debility. Patient has a history of dementia and had strokes in the past. Patient was admitted to [place] [address], he was seen by PT and OT, and during his hospital stay had an episode of rectal bleeding with a mild drop in his hemoglobin. Patient's Eliquis was stopped, conversations were carried out with the patient's as to how aggressive to get with the patient's medical care, his wanted the patient to undergo colonoscopy but the patient refused to drink the prep and refused the procedure. Patient's was then contacted and she agreed not to have the procedure carried out. also agreed to have the patient's CODE STATUS changed to DNR comfort care. On 05/26/2018, patient was seen and examined and felt to be in stable condition for discharge to a [facility] facility. Physical exam: On examination he appeared frail, he was confused. Vital signs as documented. Skin warm and dry and without overt rashes. Neck without JVD. Lungs clear. Heart exam notable for irregular rhythm. Abdomen unremarkable and without evidence of organomegaly, masses, or abdominal aortic enlargement. Extremities nonedematous. Neuro: Cranial nerves II through XII are grossly intact, no focal motor deficits were noted, sensation to light touch and pinprick intact. Psych: Patient is alert but confused - Physical Exam Vital Signs Temp Pulse Resp BP Pulse Ox 98.7 F 96 22 H 143/97 H 97 05/26/18 19:53 05/26/18 19:53 05/26/18 19:53 05/26/18 19:53 05/26/18 19:53 Oxygen Delivery Method Room Air Weight: 57.8 kg Body Mass Index (BMI) 19.3 Finger Stick Blood Glucose 113 Intake and Output for Last 24 Hours 05/25/18 05/26/18 05/27/18 23:59 23:59 23:59 Intake Total 1787 2510 / 2510 Balance 1787 / 2509 Home Medications: Medications to take at Discharge atorvastatin 40 mg tablet 40 mg PO QDAY 06/04/17 digoxin 125 mcg tablet 125 mcg PO QDAY 06/04/17 levothyroxine 100 mcg tablet 100 mcg PO QDAY 06/04/17 metoprolol succinate ER 100 mg tablet,extended release 24 hr 50 mg PO QDAY 06/04/17 Lisinopril [Zestril] 10 mg PO DAILY 05/23/18 Venlafaxine HCl [Effexor Xr] 75 mg PO DAILY 05/23/18 Acetaminophen [Tylenol Tablet] 650 mg PO Q6H PRN PRN tablet 05/26/18 Ensure Enlive 120 ml PO 4X/DAY liquid 05/26/18 Primary Care Physician: Dank Solares MD [Primary Care Provider] - Disposition: Long Term facility Minutes spent on discharge:: 32 Patient Condition:: Stable Medical Necessity - Tobacco Use Smoking Status: Unknown if ever smoked Tobacco Use: Non-smoker Meaningful Use Info Meaningful Use Diagnoses (Choose all that apply): None applicable Code Visit Inpatient E&M: 26499 Disch Hosp
--- NOTE | 2018-05-27 17:54 | DS.PCM_ITS ---
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 #2 blood loss [id number] to rectal bleeding from unknown etiology #3 rectal bleeding-etiology unknown #4 atrial fibrillation-chronic #5 cerebrovascular disease #6 type 2 diabetes-under control with diet #7 hypertension - Secondary Discharge Diagnosis Chronic Problems (Last Updated 12/04/17 @ 08:33 by GIA QuanC) Alzheimer's dementia (Chronic) Pure hypercholesterolemia (Chronic) Essential (primary) hypertension (Chronic) Non-rheumatic tricuspid valve insufficiency (Chronic) Nonrheumatic mitral valve insufficiency (Chronic) Atrial fibrillation (Chronic) Cardiomyopathy (Chronic) Aortic valve stenosis (Chronic) Hypothyroidism (Chronic) Diabetes mellitus type 2 in nonobese (Chronic) Acute thromboembolic cerebrovascular accident (CVA) (Chronic) Hospital Course and Treatment Operations: None Procedures: None Summary of Care Provided: The patient is a 77 year old M was seen in the emergency room at [facility] after being brought in by his due to frequent falls at home and generalized debility. Patient has a history of dementia and had strokes in the past. Patient was admitted to [place] [address], he was seen by PT and OT, and during his hospital stay had an episode of rectal bleeding with a mild drop in his hemoglobin. Patient's Eliquis was stopped, conversations were carried out with the patient's as to how aggressive to get with the patient's medical care, his wanted the patient to undergo colonoscopy but the patient refused to drink the prep and refused the procedure. Patient's was then contacted and she agreed not to have the procedure carried out. also agreed to have the patient's CODE STATUS changed to DNR comfort care. On 05/26/2018, patient was seen and examined and felt to be in stable condition for discharge to a detention facility. Physical exam: On examination he appeared frail, he was confused. Vital signs as documented. Skin warm and dry and without overt rashes. Neck without JVD. Lungs clear. Heart exam notable for irregular rhythm. Abdomen unremarkable and without evidence of organomegaly, masses, or abdominal aortic enlargement. Extremities nonedematous. Neuro: Cranial nerves II through XII are grossly intact, no focal motor deficits were noted, sensation to light touch and pinprick intact. Psych: Patient is alert but confused - Physical Exam Vital Signs Temp Pulse Resp BP Pulse Ox 98.7 F 96 22 H 143/97 H 97 05/26/18 19:53 05/26/18 19:53 05/26/18 19:53 05/26/18 19:53 05/26/18 19:53 Oxygen Delivery Method Room Air Weight: 57.8 kg Body Mass Index (BMI) 19.3 Finger Stick Blood Glucose 113 Intake and Output for Last 24 Hours 05/25/18 05/26/18 05/27/18 23:59 23:59 23:59 Intake Total 1787 2510 / 2510 Balance 1787 / 2509 Home Medications: Medications to take at Discharge atorvastatin 40 mg tablet 40 mg PO QDAY 06/04/17 digoxin 125 mcg tablet 125 mcg PO QDAY 06/04/17 levothyroxine 100 mcg tablet 100 mcg PO QDAY 06/04/17 metoprolol succinate ER 100 mg tablet,extended release 24 hr 50 mg PO QDAY 06/04/17 Lisinopril [Zestril] 10 mg PO DAILY 05/23/18 Venlafaxine HCl [Effexor Xr] 75 mg PO DAILY 05/23/18 Acetaminophen [Tylenol Tablet] 650 mg PO Q6H PRN PRN tablet 05/26/18 Ensure Enlive 120 ml PO 4X/DAY liquid 05/26/18 Primary Care Physician: Dank Solares MD [Primary Care Provider] - Disposition: Custodial facility Minutes spent on discharge:: 32 Patient Condition:: Stable Medical Necessity - Tobacco Use Smoking Status: Unknown if ever smoked Tobacco Use: Non-smoker Meaningful Use Info Meaningful Use Diagnoses (Choose all that apply): None applicable Code Visit Inpatient E&M: 52782 Disch Hosp
== END 2018-05-26 20:08 | disposition skilled nursing facility (03) | DRG 56 ==
LOC: ED 10:22 → MS3 13:47
PROVIDERS: Physician Assistant; Admitting Provider Internal Medicine; Emergency Provider Emergency Medicine; Family Provider Family Medicine; PCP Family Medicine; Referring Provider Internal Medicine; Visit Provider Internal Medicine
DX: G30.9 Alzheimer's disease, unspecified (principal); E43 Unspecified severe protein-calorie malnutrition; Z68.1 Body mass index [BMI] 19.9 or less, adult; K62.5 Hemorrhage of anus and rectum; D62 Acute posthemorrhagic anemia; I42.9 Cardiomyopathy, unspecified; R53.81 Other malaise; I48.91 Unspecified atrial fibrillation; I67.9 Cerebrovascular disease, unspecified; E03.9 Hypothyroidism, unspecified; E11.9 Type 2 diabetes mellitus without complications; R29.6 Repeated falls; I36.1 Nonrheumatic tricuspid (valve) insufficiency; I10 Essential (primary) hypertension; I34.0 Nonrheumatic mitral (valve) insufficiency; I35.0 Nonrheumatic aortic (valve) stenosis; F02.80 Dementia in other diseases classified elsewhere, unspecified severity, without behavioral disturbance, psychotic disturbance, mood disturbance, and anxiety; Z79.84 Long term (current) use of oral hypoglycemic drugs; E78.00 Pure hypercholesterolemia, unspecified; Z79.01 Long term (current) use of anticoagulants; Z66 Do not resuscitate; Z86.73 Personal history of transient ischemic attack (TIA), and cerebral infarction without residual deficits
CPT/HCPCS: 36415; 70450; 71045; 72125; 80048; 80053; 83880; 84484; 85014; 85018; 85025; 85610; 93005; 97162; 97165; 99285; J7030; A4216